=== PATIENT | male | born 1955 | race Caucasian/White ===

== ENCOUNTER → 2018-03-05 | Day surgery (SDC) | payer BC ==
[2018-03-04 17:20] LABS: BASOPHILS % 0.7 % (0.0-1.0); EOSINOPHILS # (AUTO) 0.8 (0.0-0.4); HEMATOCRIT 36.1 % (38.2-49.6); HEMOGLOBIN 12.1 g/dL (14.0-18.0); LYMPHOCYTES # (AUTO) 0.9 (1.0-3.2); LYMPHOCYTES % 16.3 % (18.0-39.1); MEAN CORPUSCULAR HEMOGLOBIN 29.5 pg (28-32); MEAN CORPUSCULAR HGB CONC 33.5 g/dL (31-35); MONOCYTES # (AUTO) 0.7 (0.2-0.8); MONOCYTES % 12.8 % (4.4-11.3); NEUTROPHILS # (AUTO) 3.2 (2.1-6.9); PLATELET COUNT 109 x10e3/uL (140-360); RED CELL DISTRIBUTION WIDTH 12.7 % (11.7-14.4)
[~2018-03-05] MED LIST: ATORVASTATIN CA20 MG PO; BRILINTA90 MG PO; CALTRATE 600+D1 EACH PO; CARVEDILOL12.5 MG PO; CRESTOR20 MG PO; DAILY VITAMIN1 EAC3 PO; DICLOFENAC SODI75 MG PO; FENTANYL CITRATE/PF 100MCG/2 ML INJ ONE; FUROSEMIDE40 MG PO; IRON PO; ISOSORBIDE MONO30 MG PO; LISINOPRIL10 MG PO; METHOCARBAMOL750 MG PO; MIDAZOLAM HCL 2 MG/2 ML VIAL ONE; PROPOFOL IV EMULSION 10 MG/ML 50 ML VIAL ONE; SPIRONOLACTONE25 MG PO; VIT D3 PO; VITAMIN D2 IM; VITAMIN PO
--- OUTSIDE RECORDS SUMMARY | 2018-03-05 06:46 | XMS REPORT | Clinical Summary ---
Author Author PATT Baitianshi [facility] [employer] [facility] Address Unknown Phone Unavailable Care Team Providers Care Pediatric Np Name Role Phone Boris Marroquin PCP Allergies No Known Allergies Medications End Date Status Medication Sig Dispensed Refills Start Date Active CALCIUM CARBONATE/VITAMIN Take 1 tablet 0 D3 (CALTRATE 600 + D by mouth ORAL) daily. Active docusate sodium (COLACE) Take 100 mg 0 100 MG capsule by mouth as needed . Active cholecalciferol, vitamin Take 1,000 0 D3, 2,000 unit Cap Units by mouth daily. Active VIT#96/FERROUS Take 1 tablet 0 FUM/FA ( VITAMIN by mouth W/IRON-FOLATE) 27 mg daily. iron- 800 mcg Tab Active b complex vitamins tablet Take 1 tablet 0 by mouth daily B-12 . Active isosorbide mononitrate TAKE ONE 30 tablet 5 (IMDUR) 60 MG 24 hr TABLET BY 8 tablet MOUTH DAILY 06/10/2018 Active carvedilol (COREG) 12.5 Take 1 tablet 60 tablet 11 MG tablet (12.5 mg 8 total) by mouth 2 (two) times daily with breakfast and dinner. 06/10/2018 Active atorvastatin (LIPITOR) 80 Take 1 tablet 30 tablet 11 MG tablet (80 mg total) 8 by mouth daily. 06/10/2018 Active spironolactone Take 1 tablet 30 tablet 11 (ALDACTONE) 25 MG tablet (25 mg total) 8 by mouth daily. Active ticagrelor (BRILINTA) 90 Take 1 tablet 180 tablet 3 mg Tab tablet (90 mg total) 8 by mouth every 12 (twelve) hours. Active furosemide (LASIX) 20 MG Take 1 tablet 30 tablet 11 tablet (20 mg total) 8 by mouth daily. 11/24/2018 Active lisinopril Take 1 tablet 30 tablet 11 (PRINIVIL,ZESTRIL) 40 MG (40 mg total) 8 tablet by mouth daily. 06/10/2017 Discontinued carvedilol (COREG) 12.5 Take 1 tablet 60 tablet 6 MG tablet (12.5 mg 6 total) by mouth 2 (two) times daily with breakfast and dinner. 04/29/2017 Discontinued isosorbide mononitrate Take 1 tablet 30 tablet 6 (IMDUR) 60 MG 24 hr (60 mg total) 6 tablet by mouth daily. 06/10/2017 Discontinued atorvastatin (LIPITOR) 80 Take 1 tablet 30 tablet 6 MG tablet (80 mg total) 6 by mouth daily. 06/10/2017 Discontinued furosemide (LASIX) 20 MG Take 1 tablet 45 tablet 11 tablet (20 mg total) 6 by mouth daily And as needed for weight gain. 04/16/2017 ferrous sulfate (FERROUS Take 1 tablet 0 SULFATE) 325 (65 FE) MG (325 mg 6 tablet total) by mouth 3 (three) times daily with meals. 06/10/2017 Discontinued ticagrelor (BRILINTA) 90 Take 1 tablet 180 tablet 3 mg Tab tablet (90 mg total) 7 by mouth every 12 (twelve) hours. 06/10/2017 Discontinued lisinopril Take 1 tablet 30 tablet 11 (PRINIVIL,ZESTRIL) 20 MG (20 mg total) 7 tablet by mouth daily. 06/10/2017 Discontinued spironolactone Take 1 tablet 30 tablet 5 (ALDACTONE) 25 MG tablet (25 mg total) 7 by mouth daily. 11/11/2017 Discontinued furosemide (LASIX) 20 MG Take 1 tablet 30 tablet 11 tablet (20 mg total) 8 by mouth daily. 11/24/2017 Discontinued lisinopril Take 1 tablet 30 tablet 11 (PRINIVIL,ZESTRIL) 20 MG (20 mg total) 8 tablet by mouth daily. 11/24/2017 Discontinued furosemide (LASIX) 40 MG Take 1 tablet 30 tablet 5 tablet (40 mg total) 8 by mouth daily. Active Problems Patient Care Coordination Note Interim Test/Studies 2DEcho, 04/10/17 Summary 1. The left ventricle is chamber size (by vol index) is severely enlarged. No evidence of LV hypertrophy. Severe hypokinesis of the entire inferolateral camara. The other LV segments contract normally. Global LV systolic function mildly reduced. Estimated LVEF by qualitative assessment is mildly reduced (45-49%). Grade 1 diastolic dysfunction (impaired relaxation and low-normal LA pressure). LA size is severely enlarged (>48 ml/m2). 2. RV chamber size is moderately enlarged. Global RV systolic function is normal. RA size is moderately dilated. Estimated peak systolic PA pressure is 25-30 mmHg . 3. Mild tricuspid regurgitation. Previous Study In comparison with the prior exam 09/03/2016 there is no significant interval change. 2D Echo 02/05/17 [facility] Summary 1. The left ventricle is chamber size (by vol index) is severely enlarged. No evidence of LV hypertrophy. Severe hypokinesis of the entire inferolateral camara. The other LV segments contract normally. Global LV systolic function mildly reduced. Estimated LVEF by qualitative assessment is mildly reduced (45-49%). Grade 1 diastolic dysfunction (impaired relaxation and low-normal LA pressure). LA size is severely enlarged (>48 ml/m2).LVIDd 6.5 cm 2. RV chamber size is moderately enlarged. Global RV systolic function is normal. RA size is moderately dilated. Estimated peak systolic PA pressure is 25-30 mmHg . 3. Mild tricuspid regurgitation. Previous Study In comparison with the prior exam 09/03/2016 there is no significant interval change. 2D Echo 09/03/16 [facility] SUMMARY: LVEF by quantitative assessment is mildly reduced (45-49%).LVIDd 5.2 cm Inferolateral segments appear hypokinetic. The other segments are minimally hypokinetic Grade 1 diastolic dysfunction (impaired relaxation and low-normal LA pressure). The right ventricular chamber size and systolic function are within normal limits. Estimated peak systolic PA pressure is 20-25 mmHg + RA pressure. In comparison with the prior exam on 08/01/15 the following changes are noted: improved EF. Problem Noted Date AICD (automatic cardioverter/defibrillator) present - [facility] 04/04/2016 Systolic HF (heart failure) 08/04/2015 Type II or unspecified type diabetes mellitus with other specified 12/29/2014 manifestations, not stated as uncontrolled Unstable angina 12/07/2014 CAD (coronary artery disease) 04/09/2012 Overview: CABG 2003, PCI left main D1 in 2000 Ischemic cardiomyopathy 02/10/2012 Overview: LVEF 50%, LVIDd 5.9 cm per echo 05/19/2014 Morbid obesity 02/10/2012 Overview: S/p bariatric surgery 03/23/12 Hypertension 02/10/2012 Prostatism 02/10/2012 Hyperlipidemia 02/10/2012 Gout 02/10/2012 JOSE on CPAP 02/10/2012 Chronic back pain 02/10/2012 Chronic knee pain 02/10/2012 PVD (peripheral vascular disease) 02/10/2012 Overview: Largely venous insufficiency and chronic lymphedema Peripheral neuropathy 02/10/2012 Encounters Care Team Description Date Type Specialty Kaylee Benavides 02/16/2018 Telephone Central Scheduling Gustabo Dorado MD Ischemic cardiomyopathy; Essential hypertension; Hyperlipidemia, unspecified hyperlipidemia type; Chronic systolic heart failure (HCC); Mixed hyperlipidemia; Type 2 diabetes mellitus without complication, unspecified whether long-term insulin use (HCC) 02/12/2018 Office Visit Kaylee Franco 02/11/2018 Documentation Transplant Gustabo Dorado MD Coronary artery disease involving upper [place] coronary artery of upper [place] heart without angina pectoris (Primary Dx) 12/16/2017 Office Visit Kaylee Franco Follow-up 11/20/2017 Telephone Transplant Gustabo Dorado MD Ischemic cardiomyopathy; Essential hypertension; Hyperlipidemia, unspecified hyperlipidemia type; Chronic systolic heart failure (HCC); Mixed hyperlipidemia; Systolic heart failure, unspecified HF chronicity (HCC); Type 2 diabetes mellitus without complication, unspecified whether rn long term care insulin use (HCC) 11/11/2017 Office Visit Kaylee Franco 11/10/2017 Documentation Transplant Ann-Marie Reid RN Systolic heart failure, unspecified HF chronicity (HCC) (Primary Dx); Type 2 diabetes mellitus without complication, unspecified whether rn long term care insulin use (HCC) 11/07/2017 Orders Only Transplant Kaylee Benavides 10/21/2017 Documentation Transplant Gustabo Dorado MD Ischemic cardiomyopathy; Essential hypertension; Hyperlipidemia, unspecified hyperlipidemia type; Chronic systolic heart failure (HCC); Mixed hyperlipidemia 08/05/2017 Office Visit Transplant Caitlyn Song RN Ischemic cardiomyopathy (Primary Dx); Essential hypertension; Hyperlipidemia, unspecified hyperlipidemia type; Chronic systolic heart failure (HCC); Mixed hyperlipidemia 07/17/2017 Orders Only Transplant Kaylee Benavides 07/16/2017 Telephone Transplant Caitlyn Song RN medication question 07/09/2017 Telephone Transplant Caitlyn Song RN 06/10/2017 Orders Only Transplant Caitlyn Song RN 06/06/2017 Orders Only Transplant Tanna Quiles NP 04/29/2017 Refill Transplant Gustabo Dorado MD Essential hypertension (Primary Dx); Hyperlipidemia, unspecified hyperlipidemia type; Chronic systolic heart failure (HCC) 04/10/2017 Office Visit Transplant Kaylee Benavides 04/09/2017 Telephone Transplant after 03/04/2017 Immunizations Name Dates Previously Given Next Due Influenza TIV (IM) 05/19/2014 Influenza Three-TIV PF 5+ 02/15/2016 YR Social History Date Tobacco Use Types Packs/Day Years Used Former Smoker Cigarettes, Cigars Smokeless Tobacco: Never Used Alcohol Use Drinks/Week oz/Week Comments Yes 2 glasses of wine a year Sex Assigned at Date Recorded Not on file Industry Job Start Date Occupation Not on file Not on file Not on file Travel End Travel History Travel Start No recent travel history available. Last Filed Vital Signs Time Taken Vital Sign Reading 02/12/2018 2:00 PM CDT Blood Pressure 124/92 02/12/2018 2:00 PM CDT Pulse 92 02/12/2018 2:00 PM CDT Temperature 36.6 C (97.9 F) 02/12/2018 2:00 PM CDT Respiratory Rate 20 02/12/2018 2:00 PM CDT Oxygen Saturation 97% - Inhaled Oxygen - Concentration 02/12/2018 2:00 PM CDT Weight 132.8 kg (292 lb 11.2 oz) 02/12/2018 2:00 PM CDT Height 190.5 cm (6' 3") 02/12/2018 2:00 PM CDT Body Mass Index 36.58 Plan of Treatment Care Team Description Date Type Specialty Gustabo Dorado MD [id number] [place] [address] [phone] 05/14/2018 Office Visit Transplant Health Maintenance Due Date Last Done Comments INFLUENZA VACCINE 01/19/2018 02/15/2016 Implants Device Identifier Shelf Expiration Date Model / Serial / Lot Implanted Type Area Manufactur er 11/19/2015 [id number] - 65 / [id number] / Durata / Rv - Icd [employer] Implanted: Qty: 1 on 12/13/2014 [employer] 06/18/2017 [id number] - 52 / [id number] / [employer] Sts / Ra - Icd [employer] Implanted: Qty: 1 on 12/13/2014 [employer] 09/18/2016 [id number] - 40Q / [id number] / Clare Kc Dr / Generator [facility] [employer] Implanted: Qty: 1 on 12/13/2014 [employer] Procedures Comments Procedure Name Priority Date/Time Associated Diagnosis CBC W/PLT COUNT & AUTO STAT 02/12/2018 Ischemic cardiomyopathy DIFFERENTIAL 1:51 PM CDT Essential hypertension Hyperlipidemia, unspecified hyperlipidemia type Chronic systolic heart failure (HCC) Mixed hyperlipidemia HEMOGLOBIN A1C AP Routine 02/12/2018 Type 2 diabetes mellitus 1:51 PM CDT without complication, unspecified whether long-term insulin use (HCC) HEPATIC FUNCTION PANEL STAT 02/12/2018 Ischemic cardiomyopathy 1:51 PM CDT Essential hypertension Hyperlipidemia, unspecified hyperlipidemia type Chronic systolic heart failure (HCC) Mixed hyperlipidemia LIPID PANEL STAT 02/12/2018 Ischemic cardiomyopathy 1:51 PM CDT Essential hypertension Hyperlipidemia, unspecified hyperlipidemia type Chronic systolic heart failure (HCC) Mixed hyperlipidemia B-TYPE NATRIURETIC FACTOR STAT 02/12/2018 Ischemic cardiomyopathy (BNP) 1:51 PM CDT Essential hypertension Hyperlipidemia, unspecified hyperlipidemia type Chronic systolic heart failure (HCC) Mixed hyperlipidemia BASIC METABOLIC PANEL (7) STAT 02/12/2018 Ischemic cardiomyopathy 1:51 PM CDT Essential hypertension Hyperlipidemia, unspecified hyperlipidemia type Chronic systolic heart failure (HCC) Mixed hyperlipidemia CBC W/PLT COUNT & AUTO STAT 02/12/2018 Ischemic cardiomyopathy DIFFERENTIAL 1:51 PM CDT Essential hypertension Hyperlipidemia, unspecified hyperlipidemia type Chronic systolic heart failure (HCC) Mixed hyperlipidemia CBC W/PLT COUNT & AUTO STAT 11/11/2017 Ischemic cardiomyopathy DIFFERENTIAL 1:54 PM CDT Essential hypertension Hyperlipidemia, unspecified hyperlipidemia type Chronic systolic heart failure (HCC) Mixed hyperlipidemia HEMOGLOBIN A1C AP Routine 11/11/2017 Type 2 diabetes mellitus 1:54 PM CDT without complication, unspecified whether long-term insulin use (HCC) B-TYPE NATRIURETIC FACTOR STAT 11/11/2017 Ischemic cardiomyopathy (BNP) 1:54 PM CDT Essential hypertension Hyperlipidemia, unspecified hyperlipidemia type Chronic systolic heart failure (HCC) Mixed hyperlipidemia BASIC METABOLIC PANEL (7) STAT 11/11/2017 Ischemic cardiomyopathy 1:54 PM CDT Essential hypertension Hyperlipidemia, unspecified hyperlipidemia type Chronic systolic heart failure (HCC) Mixed hyperlipidemia CBC W/PLT COUNT & AUTO STAT 11/11/2017 Ischemic cardiomyopathy DIFFERENTIAL 1:54 PM CDT Essential hypertension Hyperlipidemia, unspecified hyperlipidemia type Chronic systolic heart failure (HCC) Mixed hyperlipidemia ECG 12-LEAD Routine 11/11/2017 Systolic heart failure, 1:51 PM CDT unspecified HF chronicity (HCC) CBC W/PLT COUNT & AUTO STAT 08/05/2017 Ischemic cardiomyopathy DIFFERENTIAL 1:57 PM CDT Essential hypertension Hyperlipidemia, unspecified hyperlipidemia type Chronic systolic heart failure (HCC) Mixed hyperlipidemia HEPATIC FUNCTION PANEL STAT 08/05/2017 Ischemic cardiomyopathy 1:57 PM CDT Essential hypertension Hyperlipidemia, unspecified hyperlipidemia type Chronic systolic heart failure (HCC) Mixed hyperlipidemia LIPID PANEL STAT 08/05/2017 Ischemic cardiomyopathy 1:57 PM CDT Essential hypertension Hyperlipidemia, unspecified hyperlipidemia type Chronic systolic heart failure (HCC) Mixed hyperlipidemia B-TYPE NATRIURETIC FACTOR STAT 08/05/2017 Ischemic cardiomyopathy (BNP) 1:57 PM CDT Essential hypertension Hyperlipidemia, unspecified hyperlipidemia type Chronic systolic heart failure (HCC) Mixed hyperlipidemia BASIC METABOLIC PANEL (7) STAT 08/05/2017 Ischemic cardiomyopathy 1:57 PM CDT Essential hypertension Hyperlipidemia, unspecified hyperlipidemia type Chronic systolic heart failure (HCC) Mixed hyperlipidemia CBC W/PLT COUNT & AUTO STAT 08/05/2017 Ischemic cardiomyopathy DIFFERENTIAL 1:57 PM CDT Essential hypertension Hyperlipidemia, unspecified hyperlipidemia type Chronic systolic heart failure (HCC) Mixed hyperlipidemia CBC W/PLT COUNT & AUTO STAT 04/10/2017 Hyperlipidemia, DIFFERENTIAL 2:54 PM IT HELP DESK TECHNICIAN unspecified hyperlipidemia type Chronic systolic heart failure (HCC) CBC W/PLT COUNT & AUTO STAT 04/10/2017 Hyperlipidemia, DIFFERENTIAL 2:54 PM IT HELP DESK TECHNICIAN unspecified hyperlipidemia type Chronic systolic heart failure (HCC) BASIC METABOLIC PANEL (7) STAT 04/10/2017 Hyperlipidemia, 2:54 PM IT HELP DESK TECHNICIAN unspecified hyperlipidemia type Chronic systolic heart failure (HCC) B-TYPE NATRIURETIC FACTOR STAT 04/10/2017 Hyperlipidemia, (BNP) 2:54 PM IT HELP DESK TECHNICIAN unspecified hyperlipidemia type Chronic systolic heart failure (HCC) after 03/04/2017 Results * CBC with platelet count + automated diff (02/12/2018 1:51 PM CDT) Only the most recent of 4 results within the time period is included. WBC 4.3 3.5 - 10.5 K/L [facility] RBC 4.36 (L) 4.63 - 6.08 M/L [facility] Hemoglobin 12.7 (L) 13.7 - 17.5 GM/DL [facility] Hematocrit 37.9 (L) 40.1 - 51.0 % [facility] MCV 86.9 79.0 - 92.2 fL [facility] MCH 29.1 25.7 - 32.2 pg [facility] MCHC 33.5 32.3 - 36.5 GM/DL [facility] RDW 12.3 11.6 - 14.4 % [facility] Platelets 165 150 - 450 K/CU MM [facility] MPV 10.1 9.4 - 12.4 fL [facility] nRBC 0 0 - 0 /100 WBC [facility] % Neutros 61 % [facility] % Lymphs 21 % [facility] % Monos 10 % [facility] % Eos 7 % [facility] % Baso 1 % [facility] # Neutros 2.60 1.78 - 5.38 K/L [facility] # Lymphs 0.91 (L) 1.32 - 3.57 K/L [facility] # Monos 0.42 0.30 - 0.82 K/L [facility] # Eos 0.29 0.04 - 0.54 K/L [facility] # Baso 0.05 0.01 - 0.08 K/L [facility] Immature 1 0 - 1 % [facility] Specimen Blood Performing Organization Address City/[facility]/Zipcode Phone Number [address] [address] [facility] * B N P (02/12/2018 1:51 PM CDT) Only the most recent of 4 results within the time period is included. BNP 94 0 - 100 pg/mL [facility] Specimen Blood Performing Organization Address City/State/Zipcode Phone Number [address] [address] [facility] * Hemoglobin A1c (02/12/2018 1:51 PM CDT) Only the most recent of 2 results within the time period is included. Hemoglobin A1C 5.6 4.3 - 6.1 % [facility] Specimen Blood Performing Organization Address [facility] Phone Number [facility] [address] [place], [place] [phone] [facility] * Hepatic function panel (02/12/2018 1:51 PM CDT) Only the most recent of 2 results within the time period is included. Protein, Total 7.2 6.0 - 8.3 gm/dL [facility] Albumin 4.3 3.5 - 5.0 g/dL [facility] Total Bilirubin 0.6 0.2 - 1.2 mg/dL [facility] Bilirubin, Direct 0.2 0.1 - 0.5 mg/dL [facility] Alkaline Phosphatase 128 40 - 150 U/L [facility] AST 19 5 - 34 U/L [facility] ALT 14 6 - 55 U/L [facility] Specimen Blood Performing Organization Address [facility] Phone Number [facility] [address] [place] [address] [facility] * Lipid panel (02/12/2018 1:51 PM CDT) Only the most recent of 2 results within the time period is included. Triglycerides 173 mg/dL [facility] Cholesterol 187 mg/dL [facility] HDL 32 mg/dL [facility] LDL Calculated 120 mg/dL [facility] Specimen Blood Narrative Performed At Triglyceride Reference Range: [facility] Low Risk <150 [facility] [id number] High Risk 200-499 Very High Risk>=500 Cholesterol Reference Range: Low Risk <200 [id number] High Risk>240 HDL Cholesterol Reference Range: Low Risk >=60 High Risk <40 LDL Cholesterol Reference Range: Optimal<100 Near [id number] Very High >=190 Performing Organization Address City/[facility] Phone Number [facility] [address] [place], [place] [phone] [facility] * Basic Metabolic Panel (02/12/2018 1:51 PM CDT) Only the most recent of 4 results within the time period is included. Sodium 141 136 - 145 meq/L [facility] Potassium 3.7 3.5 - 5.1 meq/L [facility] Chloride 107 98 - 107 meq/L [facility] CO2 26 22 - 29 meq/L [facility] BUN 15 7 - 21 mg/dL [facility] Creatinine 1.17 0.57 - 1.25 mg/dL [facility] Glucose 117 (H) 70 - 105 mg/dL [facility] Calcium 9.3 8.4 - 10.2 mg/dL [facility] EGFR 64Comment: ESTIMATED GFR IS mL/min/1.73 sq m [facility] NOT ACCURATE CREATININE [facility] CLEARANCE IN PREDICTING GLOMERULAR FILTRATION RATE. ESTIMATED GFR IS NOT APPLICABLE FOR DIALYSIS PATIENTS. Specimen Blood Performing Organization Address City/State/Zipcode Phone Number [facility] [address] [place] [address] [facility] * ECG 12 lead (11/11/2017 1:51 PM CDT) Narrative Performed At Ventricular Rate 65 BPM [facility] Atrial Rate 65 BPM P-R Interval 218 ms QRS Duration 118 ms Q-T Interval 450 ms QTC Calculation(Bazett) 468 ms P [place] 21 degrees R [place]re[place] 4 degrees T [place]re[place] 44 degrees Sinus rhythm with 1st degree A-V block Borderline ECG When compared with ECG of 11-JUN-2016 13:31, MD interval has increased Confirmed by MD VARUN, KARSTEN ([id number]) on 11/12/2017 11:24:40 AM Procedure Note Interface, External Ris In - 11/12/2017 11:24 AM CDT Ventricular Rate 65 BPM Atrial Rate 65 BPM P-R Interval 218 ms QRS Duration 118 ms Q-T Interval 450 ms QTC Calculation(Bazett) 468 ms P [place] 21 degrees R [place]re[place] 4 degrees T [place] 44 degrees Sinus rhythm with 1st degree A-V block Borderline ECG When compared with ECG of 11-JUN-2016 13:31, MD interval has increased Confirmed by MD VARUN, KARSTEN ([id number]) on 11/12/2017 11:24:40 AM Performing Organization Address City/State/Zipcode Phone Number GE MUSE after 03/04/2017 Insurance Payer Benefit Subscriber ID Type Phone Address Plan / Group BLUE CROSS/BLUE SHIELD BCBS OS xxxxxxxxxxxx PPO [phone] [address] [place] [address] O Advance Directives For more information, please contact: [facility] [address] [place] [address] Date Inactivated Comments Code Status Date Activated 12/16/2014 3:29 PM Full Code 12/13/2014 3:47 PM This code status was determined by: Patient 12/13/2014 3:47 PM Full Code 12/12/2014 6:48 AM This code status was determined by: Patient
--- OUTSIDE RECORDS SUMMARY | 2018-03-05 06:47 | XMS REPORT | Summary of Care ---
Author Author [facility] [place] Organization [facility] [place] Address Unknown Phone Unavailable Encounter AVELINO Tellez(JORJE) [id number] Date(s): 04/16/16 - 04/16/16 [facility] [address] [place] [phone] Discharge Disposition: Home or Self Care Attending Physician: Andrea Lehman MD Vital Signs No data available for this section Problem List Condition Effective Dates Status Health Status Informant AICD (automatic Resolved cardioverter/defibri llator) present(Confirmed) CABG (coronary 11/08/10 Active artery bypass graft)(Provisional) CABG x 5 - Coronary Active artery bypass grafts x 5(Confirmed) CAD (coronary artery 11/08/10 Active disease)(Confirmed) Cardiac function Active test abnormal(Confirmed) DM - Diabetes Active mellitus(Confirmed) Gout(Confirmed) 11/08/10 Active HLD 11/08/10 Active (hyperlipidemia)(Con firmed) HTN Resolved (hypertension)(Confi rmed) Ischemic 11/08/10 Active cardiomyopathy(Confi rmed) NC (myocardial Resolved infarction)(Confirme d) Obesity(Confirmed) Active Preoperative Active state(Confirmed) Sleep Active apnea(Confirmed) Stented coronary Resolved artery(Confirmed) Allergies, Adverse Reactions, Alerts Substance Reaction Severity Status NKDA Active Medications No data available for this section Results No data available for this section Immunizations No data available for this section Procedures Procedure Date Related Diagnosis Body Site ACD - Automatic cardiac defibrillator procedure Appendectomy Bilateral replacement of hip joints CABG x 5 - Coronary artery bypass grafts x 5 Knee replacement1 Laparoscopic sleeve gastrectomy 1bil Social History Social History Type Response Alcohol Never Smoking Status Never smoker; Exposure to Tobacco Smoke None; Cigarette Smoking Last 365 Days No; Reg Smoking Cessation Counseling Yes Assessment and Plan No data available for this section
--- OUTSIDE RECORDS SUMMARY | 2018-03-05 06:47 | XMS REPORT | Summary of Care ---
Author Author [facility] [place] Organization [facility] [place] Address Unknown Phone Unavailable Encounter AVELINO Tellez(JORJE) [id number] Date(s): 08/29/16 - 08/29/16 [facility] [place] [address] [place] [phone] Discharge Disposition: Home or Self Care Attending [...] (hypertension)(Confi rmed) Ischemic 11/08/10 Active cardiomyopathy(Confi rmed) DC (myocardial Resolved infarction)(Confirme d) Obesity(Confirmed) Active Preoperative [...] - Coronary artery bypass grafts x 5 Fusion of thoracic spine Knee replacement1 Laparoscopic sleeve gastrectomy 1bil Social History Social History Type Response Alcohol Never Smoking Status Never smoker; Exposure to Tobacco Smoke None; Cigarette Smoking Last 365 Days No; Reg Smoking Cessation Counseling Yes Assessment and Plan No data available for this section
--- OUTSIDE RECORDS SUMMARY | 2018-03-05 06:47 | XMS REPORT | Summary of Care ---
Author Author [facility] Organization [facility] Address Unknown Phone Unavailable Encounter AVELINO Tellez(JORJE) [phone] Date(s): 02/15/16 - 02/15/16 [facility] [address] [employer] provided by [employer] [place] [address]- Discharge Diagnosis: Encounter for removal of sutures Discharge Disposition: Home or Self Care Attending Physician: Jerome Barrera MD Vital Signs Most recent to 1 oldest [Reference Range]: Height 190.5 cm (02/15/16 10:10 AM) Temperature Oral 97.4 DegF [96.4-99.1 DegF] (02/15/16 10:10 AM) Blood Pressure 119/77 mmHg [90-140/60-90 mmHg] (02/15/16 10:10 AM) Respiratory Rate 18 BRMIN [14-20 BRMIN] (02/15/16 10:10 AM) Peripheral Pulse 80 bpm Rate [60-100 bpm] (02/15/16 10:10 AM) Weight 122.727 kg (02/15/16 10:10 AM) Body Mass Index 33.82 m2 (02/15/16 10:10 AM) Problem List Condition Effective Dates Status Health [...] (hypertension)(Confi rmed) Ischemic 11/08/10 Active cardiomyopathy(Confi rmed) [place] (myocardial Resolved infarction)(Confirme d) Preoperative Active state(Confirmed) Sleep Active apnea(Confirmed) Stented [...]
--- OUTSIDE RECORDS SUMMARY | 2018-03-05 06:47 | XMS REPORT | Summary of Care ---
Author Author [facility] Organization [facility] Address Unknown Phone Unavailable Encounter AVELINO Tellez(JORJE) [id number] Date(s): 01/10/16 - 01/25/16 [facility] [address] [employer] provided by [employer] [place] [address]- Discharge Disposition: Home or Self Care Attending Physician: Chace Jackson MD Admitting Physician: Julián Marvin MD Vital Signs 1 2 3 Most recent to oldest [Reference Range]: 190.5 cm (01/10/16 8:17 PM) 190.5 cm (01/10/16 7:54 AM) Height 97.7 DegF (01/25/16 4:00 PM) 97.8 DegF (01/25/16 12:39 PM) 97.6 DegF (01/25/16 8:27 AM) Temperature Oral [96.4-99.1 DegF] 120/82 mmHg (01/25/16 4:00 PM) 128/86 mmHg (01/25/16 12:39 PM) 151/94 mmHg *HI* (01/25/16 8:27 AM) Blood Pressure [90-140/60-90 mmHg] 18 BRMIN (01/25/16 4:00 PM) 18 BRMIN (01/25/16 12:39 PM) 18 BRMIN (01/25/16 8:27 AM) Respiratory Rate [14-20 BRMIN] 80 bpm (01/25/16 4:00 PM) 65 bpm (01/25/16 12:39 PM) 65 bpm (01/25/16 8:27 AM) Peripheral Pulse Rate [60-100 bpm] 121.818 kg (01/10/16 8:17 PM) 117.273 kg (01/10/16 7:54 AM) Weight 33.57 m2 (01/10/16 8:17 PM) 32.32 m2 (01/10/16 7:54 AM) Body Mass Index Problem List Condition Effective Dates Status Health [...] (hypertension)(Confi rmed) Ischemic 11/08/10 Active cardiomyopathy(Confi rmed) HI (myocardial Resolved infarction)(Confirme d) Preoperative Active state(Confirmed) Sleep Active apnea(Confirmed) Stented coronary Resolved artery(Confirmed) Allergies, Adverse Reactions, Alerts Substance Reaction Severity Status NKDA Active Medications Ancef 1 gm, Route: IVPB, Drug form: INJ, ONCE, Dosing Weight 121.818, kg, Start date: 01/18/16 16:15:00 CDT, Stop date: 01/18/16 16:15:00 CDT Start Date: 01/18/16 Stop Date: 01/18/16 Status: Completed Ancef 2 gm, Route: IVPB, ONCE, Dosing Weight 121.818, kg, Start date: 01/18/16 13:17:0 0 CDT, Duration: 1 doses or times, Stop date: 01/18/16 13:17:00 CDT, Surgical Pr ophylaxis Only; For patients < 120 kg Start Date: 01/18/16 Stop Date: 01/18/16 Status: Completed Ancef + sodium chloride 0.9% INJ 100 mL 2 gm, Route: IVPB, Drug form: INJ, [id number], Dosing Weight 121.818, kg, Start date : 01/18/16 21:00:00 CDT, Stop date: 01/19/16 16:00:00 CDT, Surgical Prophylaxis Only; For patients < 120 kg Notes: (Same As: Ancef, Kefzol)Cefazolin FOR IV SET ONLY MEDICATION WAS TE Product Size: 1000 mgProduct Wasted: _0__ mg Start Date: 01/18/16 Stop Date: 01/19/16 Status: Completed ANES flumazenil 0.2 mg, 2 mL, Route: IVP, Drug form: INJ, PRN, Dosing Weight 121.818, kg, PRN Be nzodiazepine Reversal, Initial dose, Start date: 01/18/16 17:39:00 CDT, Duration : 30 day, Stop date: 02/17/16 17:38:00 CDT Notes: (Same as: Romazicon) Start Date: 01/18/16 Stop Date: 01/18/16 Status: Discontinued ANES HYDROmorphone 0.5 mg, 0.25 mL, Route: IVP, Drug form: INJ, Q5Min, Dosing Weight 121.818, kg, P RN Pain Score 7-10, Start date: 01/18/16 17:39:00 CDT, Duration: 4 doses or time s, Stop date: Limited # of times Notes: (Same as: Dilaudid) Start Date: 01/18/16 Stop Date: 01/18/16 Status: Discontinued ANES naloxone 0.4 mg, 1 mL, Route: IVP, Drug form: INJ, Q2MIN, Dosing Weight 121.818, kg, PRN Narcotic Reversal, Start date: 01/18/16 17:39:00 CDT, Duration: 8 doses or times , Stop date: Limited # of times Notes: Same as Narcan Start Date: 01/18/16 Stop Date: 01/18/16 Status: Discontinued ANES ondansetron 4 mg, 2 mL, Route: IVP, Drug form: INJ, ONCE, Dosing Weight 121.818, kg, PRN Ti sea & Vomiting, Start date: 01/18/16 17:39:00 CDT Notes: (Same as: Isra) MEDICATION WASTE Product Size: 4 mgProduct Was jackie: ___ mg Start Date: 01/18/16 Stop Date: 01/18/16 Status: Discontinued ANES oxyCODONE 5 mg, 1 tab, Route: PO, Drug form: TAB, Q4H, Dosing Weight 121.818, kg, PRN Pain Score 4-6, Start date: 01/18/16 17:39:00 CDT, Duration: 30 day, Stop date: 01/20 01/04 17:38:00 CDT Notes: (Same as: Roxicodone) Start Date: 01/18/16 Stop Date: 01/18/16 Status: Discontinued atorvastatin 80 mg, 1 tab, Route: PO, Drug form: TAB, Bedtime, Dosing Weight 121.818, kg, Sta rt date: 01/11/16 21:00:00 CDT, Duration: 30 day, Stop date: 02/09/16 21:00:00 C DT Notes: Same as Lipitor Start Date: 01/11/16 Stop Date: 01/25/16 Status: Discontinued Brilinta (ticagrelor) 90 mg, 1 tab, Route: PO, Drug form: TAB, Q12H, Dosing Weight 121.818, kg, Start date: 01/24/16 21:00:00 CDT, Duration: 30 day, Stop date: 02/23/16 9:00:00 CDT Notes: (Same as: Brilinta) Start Date: 01/24/16 Stop Date: 01/25/16 Status: Discontinued Brilinta (ticagrelor) 90 mg oral tablet 90 mg=1 tab, PO, BID, 0 Refill(s) Start Date: 01/19/16 Status: Ordered bupivacaine liposome 20 mL, Route: InFILtration(local), Drug Form: INJ, ONCE, NOW, Start date: 13:47:00 CDT, Stop date: 01/18/16 13:47:00 CDT Notes: (Same as: Exparel) NOT FOR IV use Postoperative analgesia: Infi ltration (local): Dose is based on surgical site and volume required to cover th e area (in general, the maximum total dose is 266 mg).Bunionectomy: 7 mL into th e tissues surrounding the osteotomy and 1 mL into the subcutaneous tissue of the surgical site (total dose=8 mL [106 mg])Hemorrhoidectomy: 30 mL (20 mL vial dil uted with 10 mL NS) divided and administered as 6 injections of 5 mL each (total dose=30 mL [266 mg]) Start Date: 01/18/16 Stop Date: 01/18/16 Status: Completed Caltrate 600 + D 1 tab, PO, Daily, 0 Refill(s) Start Date: 01/11/16 Status: Ordered carvedilol 12.5 mg, 1 tab, Route: PO, Drug form: TAB, Q12H, Dosing Weight 121.818, kg, Star t date: 01/11/16 21:00:00 CDT, Duration: 30 day, Stop date: 02/10/16 9:00:00 CDT Notes: Give with food. (Same As: Coreg) Start Date: 01/11/16 Stop Date: 01/25/16 Status: Discontinued carvedilol 12.5 mg oral tablet 12.5 mg=1 tab, PO, Q12H, # 60 tab, 0 Refill(s) Start Date: 01/25/16 Stop Date: 02/24/16 Status: Ordered cholecalciferol =1 tab, PO, Daily, 0 Refill(s) Start Date: 01/11/16 Status: Ordered Dextrose 50% Syringe 25 gm, 50 mL, Route: IVP, Drug Form: INJ, Dosing Weight 117.273, kg, PRN, PRN Ab normal Lab Result, Start date: 01/10/16 12:42:00 CDT, Duration: 30 day, Stop sean e: 02/09/16 12:41:00 CDT, For FSBG < 40 mg/dL Start Date: 01/10/16 Stop Date: 01/19/16 Status: Discontinued Dextrose 50% Syringe 12.5 gm, 25 mL, Route: IVP, Drug Form: INJ, Dosing Weight 117.273, kg, PRN, PRN Abnormal Lab Result, Start date: 01/10/16 12:42:00 CDT, Duration: 30 day, Stop d ate: 02/09/16 12:41:00 CDT, For FSBG 40 mg/dL - 60 mg/dL Start Date: 01/10/16 Stop Date: 01/19/16 Status: Discontinued Dilaudid 0.5 mg, 0.25 mL, Route: IVP, Drug form: INJ, ONCE, Dosing Weight 117.273, kg, Pr iority: STAT, Start date: 01/10/16 14:20:00 CDT, Stop date: 01/10/16 14:20:00 CD T Notes: (Same as: Dilaudid) Start Date: 01/10/16 Stop Date: 01/10/16 Status: Completed docusate 100 mg, PO, PRN, 0 Refill(s) Start Date: 01/11/16 Status: Ordered Dulcolax Laxative 5 mg, 1 tab, Route: PO, Drug form: ECTAB, ONCE, Dosing Weight 121.818, kg, Start date: 01/13/16 17:47:00 CDT, Stop date: 01/13/16 17:47:00 CDT Notes: (Same As: Dulcolax, Correctol) (Do Not Crush) "Do Not Crush" Start Date: 01/13/16 Stop Date: 01/13/16 Status: Completed fentaNYL 50 microgram, Route: IVP, ONCE, Dosing Weight 117.273, kg, Priority: STAT, Start date: 01/10/16 9:47:00 CDT, Stop date: 01/10/16 9:47:00 CDT Start Date: 01/10/16 Stop Date: 01/10/16 Status: Completed fentaNYL 50 microgram, Route: IVP, ONCE, Dosing Weight 117.273, kg, Priority: STAT, Start date: 01/10/16 8:18:00 CDT, Stop date: 01/10/16 8:18:00 CDT Start Date: 01/10/16 Stop Date: 01/10/16 Status: Completed fentaNYL 50 microgram, Route: IVP, ONCE, Dosing Weight 117.273, kg, Priority: STAT, Start date: 01/10/16 9:48:00 CDT, Stop date: 01/10/16 9:48:00 CDT Start Date: 01/10/16 Stop Date: 01/10/16 Status: Completed fentaNYL 50 microgram, 1 mL, Route: IVP, Drug form: INJ, ONCE, Dosing Weight 117.273, kg, Priority: STAT, Start date: 01/10/16 9:01:00 CDT, Stop date: 01/10/16 9:01:00 C DT Notes: (Same as: Sublimaze) Preservative free. Start Date: 01/10/16 Stop Date: 01/10/16 Status: Completed fentaNYL 50 microgram, Route: IVP, ONCE, Dosing Weight 117.273, kg, Priority: STAT, Start date: 01/10/16 9:47:00 CDT, Stop date: 01/10/16 9:47:00 CDT Start Date: 01/10/16 Stop Date: 01/10/16 Status: Completed ferrous sulfate =1 tab, PO, Daily, 0 Refill(s) Start Date: 01/11/16 Status: Ordered fosphenytoin + sodium chloride 0.9% INJ 50 mL 1,750 mg, 35 mL, Route: IV, ONCE, Dosing Weight 117.273, kg, Start date: 6 18:43:00 CDT, Stop date: 01/10/16 18:43:00 CDT, loading dose; Pediatric Dosing Notes: (Same as: Cerebyx) Stated mg=mgPE. Refrigerate ANTICONVULSANT Do no t confuse with celebrex. MEDICATION WASTE Product Size: 500 mgProduct W asted: __250_ mg Start Date: 01/10/16 Stop Date: 01/10/16 Status: Completed furosemide 20 mg oral tablet 20 mg=1 tab, PO, Daily, # 30 tab, 0 Refill(s) Start Date: 01/11/16 Status: Ordered gabapentin 300 mg oral capsule 300 mg=1 cap, PO, Q8H, # 90 cap, 0 Refill(s) Start Date: 01/25/16 Stop Date: 02/24/16 Status: Ordered gabapentin 300 mg oral capsule 300 mg, 1 cap, Route: PO, Drug form: CAP, Q8H, Dosing Weight 117.273, kg, (CrCl > 60 ml/min), Start date: 01/10/16 16:00:00 CDT, Duration: 30 day, Stop date: 02/09/16 8:00:00 CDT Notes: (Same as: Neurontin) Start Date: 01/10/16 Stop Date: 01/25/16 Status: Discontinued Insulin regular 12 unit, 0.12 mL, Route: SUB-Q, Drug form: SOLN, PRN, Dosing Weight 117.273, kg, PRN Abnormal Lab Result, Start date: 01/10/16 12:42:00 CDT, Duration: 30 day, S top date: 02/09/16 12:41:00 CDT, For FSBG >=200 mg/dL Notes: (Same as: Humulin R) Roll in palms of hands gently; Do not shake vigorou sly. "single patient use only"(Restricted to patients requiring a dose > 60 units)WASTE: F/P - Black; E - Municipal Trash Bin Stable for 28 days at room temperatureExpires in days from Date Start Date: 01/10/16 Stop Date: 01/19/16 Status: Discontinued Insulin regular 8 unit, 0.08 mL, Route: SUB-Q, Drug form: SOLN, PRN, Dosing Weight 117.273, kg, PRN Abnormal Lab Result, Start date: 01/10/16 12:42:00 CDT, Duration: 30 day, St op date: 02/09/16 12:41:00 CDT, For FSBG 175 mg/dL - 199 mg/dL Notes: (Same as: Humulin R) Roll in palms of hands gently; Do not shake vigorou sly. "single patient use only"(Restricted to patients requiring a dose > 60 units)WASTE: F/P - Black; E - Municipal Trash Bin Stable for 28 days at room temperatureExpires in days from Date Start Date: 01/10/16 Stop Date: 01/19/16 Status: Discontinued Insulin regular 5 unit, 0.05 mL, Route: SUB-Q, Drug form: SOLN, PRN, Dosing Weight 117.273, kg, PRN Abnormal Lab Result, Start date: 01/10/16 12:42:00 CDT, Duration: 30 day, St op date: 02/09/16 12:41:00 CDT, For FSBG 150 mg/dL - 174 mg/dL Notes: (Same as: Humulin R) Roll in palms of hands gently; Do not shake vigorou sly. "single patient use only"(Restricted to patients requiring a dose > 60 units)WASTE: F/P - Black; E - Municipal Trash Bin Stable for 28 days at room temperatureExpires in days from Date Start Date: 01/10/16 Stop Date: 01/19/16 Status: Discontinued Isolyte S (PH 7.4) 1000 mL 1,000 mL 1,000 mL, Rate: 50 ml/hr, Infuse over: 20 hr, Route: IV, Dosing Weight 117.273 k g, Total Volume: 1,000, Start date: 01/10/16 13:13:00 CDT, Duration: 30 day, Sto p date: 02/09/16 13:12:00 CDT Notes: (Same as: Isolyte S PH 7.4) Start Date: 01/10/16 Stop Date: 01/11/16 Status: Discontinued isosorbide mononitrate 60 mg oral tablet, extended release 60 mg=1 tab, PO, QAM, # 30 tab, 0 Refill(s) Start Date: 01/11/16 Status: Ordered isosorbide mononitrate extended release 60 mg, 1 tab, Route: PO, Drug form: ERTAB, QAM, Dosing Weight 121.818, kg, Start date: 01/12/16 9:00:00 CDT, Duration: 30 day, Stop date: 02/10/16 9:00:00 CDT Notes: (Same as:Imswapna)"Do Not Crush" Take on empty stomach/ full glass of water . Do not crush Start Date: 01/12/16 Stop Date: 01/25/16 Status: Discontinued Keppra + sodium chloride 0.9% INJ 100 mL 1,000 mg, Route: IVPB, ONCE, Dosing Weight 117.273, kg, Loading Dose, Start date : 01/10/16 11:16:00 CDT, Duration: 1 doses or times, Stop date: 01/10/16 11:16:0 0 CDT Notes: Same as KeppraMix with 100 mL NS, LR or D5W MEDICATION WASTE Prod uct Size: 500 mgProduct Wasted: ___ mg Start Date: 01/10/16 Stop Date: 01/10/16 Status: Completed Lasix 20 mg oral tablet 20 mg, 1 tab, Route: PO, Drug form: TAB, Daily, Dosing Weight 121.818, kg, Start date: 01/12/16 9:00:00 CDT, Duration: 30 day, Stop date: 02/10/16 9:00:00 CDT Notes: (Same as: Lasix) May cause GI upset. Give with food or milk. Start Date: 01/12/16 Stop Date: 01/25/16 Status: Discontinued lisinopril 5 mg, 1 tab, Route: PO, Drug form: TAB, Daily, Dosing Weight 121.818, kg, Start date: 01/12/16 9:00:00 CDT, Stop date: 02/10/16 9:00:00 CDT Notes: (Same as: Prinivil, Zestril) Start Date: 01/12/16 Stop Date: 01/25/16 Status: Discontinued lisinopril 10 mg oral tablet 10 mg=1 tab, PO, BID, # 30 tab, 0 Refill(s) Start Date: 01/11/16 Stop Date: 01/25/16 Status: Discontinued lisinopril 5 mg oral tablet 5 mg=1 tab, PO, Daily, # 30 tab, 0 Refill(s) Start Date: 01/25/16 Stop Date: 02/24/16 Status: Ordered Lovenox 30 mg, Route: SUB-Q, Drug form: INJ, [id number], Dosing Weight 121.818, kg, Start date: 01/24/16 16:00:00 CDT, Duration: 30 day, Stop date: 02/23/16 4:00:00 CDT Start Date: 01/24/16 Stop Date: 01/24/16 Status: Discontinued Lovenox 30 mg, 0.3 mL, Route: SUB-Q, Drug form: INJ, [id number], Dosing Weight 121.818, kg , Start date: 01/19/16 21:00:00 CDT, Duration: 30 day, Stop date: 02/18/16 9:00: 00 CDT Notes: (Same as: Lovenox) Start Date: 01/19/16 Stop Date: 01/24/16 Status: Discontinued Lovenox 30 mg, 0.3 mL, Route: SUB-Q, Drug form: INJ, [id number], Start date: 01/17/16 5:00 :00 CDT, Duration: 30 day, Stop date: 02/15/16 17:00:00 CDT Notes: (Same as: Lovenox) Start Date: 01/17/16 Stop Date: 01/19/16 Status: Discontinued Lovenox 30 mg, 0.3 mL, Route: SUB-Q, Drug form: INJ, [id number], Dosing Weight 121.818, kg , Start date: 01/11/16 16:00:00 CDT, Stop date: 02/10/16 4:00:00 CDT Notes: (Same as: Lovenox) Start Date: 01/11/16 Stop Date: 01/16/16 Status: Discontinued MiraLax 17 gm, 1 pkt, Route: PO, Drug form: PWDR, Daily, Dosing Weight 121.818, kg, Star t date: 01/12/16 10:00:00 CDT, Duration: 30 day, Stop date: 02/11/16 9:00:00 CDT Notes: Dissolve in 8 oz of water or juice.(Same as: Miralax) Start Date: 01/12/16 Stop Date: 01/25/16 Status: Discontinued oxyCODONE 5 mg oral tablet 5 mg, 1 tab, Route: PO, Drug form: TAB, Q4H, Dosing Weight 117.273, kg, PRN Pain Score 4-6, Start date: 01/10/16 12:43:00 CDT, Duration: 30 day, Stop date: 01/20 05/06 12:42:00 CDT Notes: (Same as: Roxicodone) Start Date: 01/10/16 Stop Date: 01/25/16 Status: Discontinued oxyCODONE 5 mg oral tablet 10 mg, 2 tab, Route: PO, Drug form: TAB, Q4H, Dosing Weight 121.818, kg, PRN Heidi n Score 7-10, Start date: 01/19/16 14:38:00 CDT, Duration: 30 day, Stop date: 14:37:00 CDT Notes: (Same as: Roxicodone) Start Date: 01/19/16 Stop Date: 01/25/16 Status: Discontinued oxyCODONE 5 mg oral tablet 10 mg, 2 tab, Route: PO, Drug form: TAB, ONCE, Dosing Weight 121.818, kg, PRN Pa in Score 7-10, Start date: 01/19/16 11:26:00 CDT Notes: (Same as: Roxicodone) Start Date: 01/19/16 Stop Date: 01/19/16 Status: Completed oxyCODONE 5 mg oral tablet 5 mg=1 tab, PO, Q6H, PRN Pain Score 4-6, X 7 day, # 28 tab, 0 Refill(s), given t o patient Start Date: 01/25/16 Stop Date: 02/01/16 Status: Ordered phenytoin 200 mg, 2 cap, Route: PO, Drug form: ERCAP, Q8H-05, Dosing Weight 121.818, kg, S tart date: 01/14/16 13:00:00 CDT, Stop date: 01/17/16 23:59:00 CDT Notes: (Same as: Dilantin) Do not open, crush, or chew. Start Date: 01/14/16 Stop Date: 01/17/16 Status: Completed phenytoin 200 mg, 4 mL, Route: IVP, Drug form: INJ, Q8H, Dosing Weight 117.273, kg, Start date: 01/11/16 6:00:00 CDT, Duration: 30 day, Stop date: 02/10/16 4:30:00 CDT Notes: (Same as: Dilantin) Do not infuse greater than 50 mg/min. MEDICATION WASTE Product Size: 100 mgProduct Wasted: ___ mg Start Date: 01/11/16 Stop Date: 01/14/16 Status: Discontinued Robaxin 1,000 mg, 2 tab, Route: PO, Drug form: TAB, Q8H, Dosing Weight 121.818, kg, Prio rity: NOW, Start date: 01/19/16 16:35:00 CDT, Duration: 30 day, Stop date: 02/17 16:00:00 CDT Notes: (Same as:Robaxin) Start Date: 01/19/16 Stop Date: 01/25/16 Status: Discontinued Robaxin 1,000 mg, Route: IV, Q8H, Dosing Weight 121.818, kg, Start date: 01/19/16 16:00: 00 CDT, Duration: 30 day, Stop date: 02/18/16 8:00:00 CDT Start Date: 01/19/16 Stop Date: 01/19/16 Status: Discontinued Saline Flush 0.9% 10 mL, Route: IVP, Drug Form: INJ, Dosing Weight 117.273, kg, PRN, PRN Line Flus h, Start date: 01/10/16 8:19:00 CDT, Duration: 30 day, Stop date: 02/09/16 8:18: 00 CDT Notes: (Same as: BD Posiflush) Start Date: 01/10/16 Stop Date: 01/25/16 Status: Discontinued senna 8.6 mg, 1 tab, Route: PO, Drug Form: TAB, Dosing Weight 121.818, kg, Daily, Star t date: 01/13/16 9:00:00 CDT, Duration: 30 day, Stop date: 02/11/16 9:00:00 CDT Notes: (Same as: Senokot) Start Date: 01/13/16 Stop Date: 01/25/16 Status: Discontinued simethicone 80 mg, 1 tab, Route: PO, Drug form: CHEWTAB, Q6H, Dosing Weight 121.818, kg, PRN Gas, Start date: 01/19/16 16:53:00 CDT, Duration: 30 day, Stop date: 02/18/16 1 6:52:00 CDT Notes: (Same as: Mylicon) Start Date: 01/19/16 Stop Date: 01/25/16 Status: Discontinued sodium chloride 0.9% 1000 ml INJ 1,000 mL 1,000 mL, Rate: 75 ml/hr, Infuse over: 13.3 hr, Route: IV, Dosing Weight 121.818 kg, Total Volume: 1,000, Start date: 01/18/16 0:01:00 CDT, Duration: 30 day, St op date: 02/17/16 0:00:00 CDT Start Date: 01/18/16 Stop Date: 01/25/16 Status: Discontinued sodium chloride 0.9% INJ 250 mL 250 mL, Rate: scalloper for use with blood product administration, Dosing Weight 1 17.273, kg, Route: IV, Total Volume: 250, Start Date: 01/10/16 8:44:00 CDT, Dura tion: 30 day, Stop date: 02/09/16 8:43:00 CDT, Replace Every: 24 hr Start Date: 01/10/16 Stop Date: 01/12/16 Status: Discontinued spironolactone 12.5 mg, 0.5 tab, Route: PO, Drug form: TAB, Daily, Dosing Weight 121.818, kg, S tart date: 01/11/16 16:00:00 CDT, Duration: 30 day, Stop date: 02/10/16 9:00:00 CDT Notes: (Same as: Aldactone)12.5 mg=1/2 x 25 mg tab Start Date: 01/11/16 Stop Date: 01/25/16 Status: Discontinued spironolactone 25 mg oral tablet 12.5 mg=0.5 tab, PO, Daily, # 15 tab, 0 Refill(s) Start Date: 01/25/16 Stop Date: 02/24/16 Status: Ordered spironolactone 25 mg oral tablet 25 mg=1 tab, PO, Daily, # 30 tab, 3 Refill(s) Start Date: 01/11/16 Stop Date: 01/25/16 Status: Discontinued tramadol 50 mg, 1 tab, Route: PO, Drug form: TAB, Q6H, Dosing Weight 121.818, kg, PRN Heidi n Score 1-3, Start date: 01/19/16 7:21:00 CDT, Duration: 30 day, Stop date: 01/21 7:20:00 CDT Notes: Not to exceed 400mg/day. (Same As: Ultram) Start Date: 01/19/16 Stop Date: 01/25/16 Status: Discontinued tramadol 100 mg, 2 tab, Route: PO, Drug form: TAB, Q6H, Dosing Weight 117.273, kg, Start date: 01/10/16 18:00:00 CDT, Duration: 30 day, Stop date: 02/09/16 12:00:00 CDT Notes: Not to exceed 400mg/day. (Same As: Ultram) Start Date: 01/10/16 Stop Date: 01/12/16 Status: Discontinued tramadol 50 mg oral tablet 50 mg=1 tab, PO, Q6H, PRN Pain Score 1-3, X 7 day, # 28 tab, 0 Refill(s) Start Date: 01/25/16 Stop Date: 02/01/16 Status: Ordered Tylenol 1,000 mg, 2 tab, Route: PO, Drug form: TAB, Q6H, Dosing Weight 117.273, kg, Star t date: 01/10/16 18:00:00 CDT, Duration: 30 day, Stop date: 02/09/16 12:00:00 CD T Notes: Max acetaminophen 4000 mg/day (4 gm/day). (Same as: Tylenol Extra Streng th) Start Date: 01/10/16 Stop Date: 01/25/16 Status: Discontinued Visipaque 320mg/ml 149 mL, Route: IVP, Drug Form: SOLN, Dosing Weight 117.273, kg, ONCALL, STAT, St art date: 01/10/16 8:41:00 CDT, Duration: 1 doses or times, Dose=2.2ml/kg, Max aann=038cu -- "To be infused by Radiology Staff ONLY" Notes: (Same as: Visipaque).WASTE: F/P - Black; E - Municipal Trash Bin Start Date: 01/10/16 Stop Date: 01/25/16 Status: Discontinued Results BLOOD BANK RESULTS 1 2 3 Most recent to oldest [Reference Range]: A NEG *Unknown* (01/18/16 12:43 AM) A NEG *Unknown* (01/10/16 8:07 AM) ABO/Rh Negative (01/18/16 12:43 AM) Negative (01/10/16 8:07 AM) Antibody Scrn Product available (01/10/16 2:59 PM) FFP product Product available (01/10/16 8:45 AM) Product available (01/10/16 8:44 AM) Platelet product ELECTROLYTES 1 2 3 Most recent to oldest [Reference Range]: 137 mEq/L (01/18/16 12:43 AM) 141 mEq/L (01/15/16 5:19 AM) 138 mEq/L (01/13/16 4:31 AM) Sodium Lvl [135-145 mEq/L] 4.2 mEq/L (01/18/16 12:43 AM) 4.3 mEq/L (01/15/16 5:19 AM) 4.2 mEq/L (01/13/16 4:31 AM) Potassium Lvl [3.5-5.1 mEq/L] 102 mEq/L (01/18/16 12:43 AM) 104 mEq/L (01/15/16 5:19 AM) 103 mEq/L (01/13/16:31 AM) Chloride Lvl [95-109 mEq/L] 28 mEq/L (01/18/16 12:43 AM) 27 mEq/L (01/15/16 5:19 AM) 31 mEq/L (01/13/16:31 AM) CO2 [24-32 mEq/L] 11.2 mEq/L (01/18/16 12:43 AM) 14.3 mEq/L (01/15/16 5:19 AM) 8.2 mEq/L *LOW* (01/13/16:31 AM) AGAP [10.0-20.0 mEq/L] CHEM PANEL 1 2 3 Most recent to oldest [Reference Range]: 0.93 mg/dL (01/18/16 12:43 AM) 0.87 mg/dL (01/15/16:19 AM) 0.87 mg/dL (01/13/16:31 AM) Creatinine Lvl [0.50-1.40 mg/dL] 90 mL/min/1.73m2 1 *NA* (01/18/16 12:43 AM) 95 mL/min/1.73m2 2 *NA* (01/15/16:19 AM) 95 mL/min/1.73m2 3 *NA* (01/13/16:31 AM) eGFR 18 mg/dL (01/18/16 12:43 AM) 14 mg/dL (01/15/16 5:19 AM) 13 mg/dL (01/13/16:31 AM) BUN [7-22 mg/dL] 129 mg/dL *HI* (01/18/16 12:43 AM) 93 mg/dL (01/15/16 5:19 AM) 103 mg/dL *HI* (01/13/16:31 AM) Glucose Lvl [70-99 mg/dL] 8.3 mg/dL *LOW* (01/18/16 12:43 AM) 8.2 mg/dL *LOW* (01/15/16 5:19 AM) 7.9 mg/dL *LOW* (01/13/16 4:31 AM) Calcium Lvl [8.5-10.5 mg/dL] 2.8 mg/dL (01/13/16 4:31 AM) 2.6 mg/dL (01/12/16 12:18 AM) 4.8 mg/dL *HI* (01/11/16 12:30 AM) Phosphorus [2.5-4.5 mg/dL] 2.6 mg/dL *HI* (01/13/16 4:31 AM) 2.1 mg/dL (01/12/16 12:18 AM) 2.1 mg/dL (01/11/16 12:30 AM) Magnesium Lvl [1.8-2.4 mg/dL] 1.2 mMol/L (01/11/16 12:30 AM) 0.9 mMol/L (01/10/16 12:40 PM) 3.6 mMol/L *HI* (01/10/16 10:46 AM) Lactic Acid Lvl [0.5-2.2 mMol/L] 1Result Comment: The eGFR is calculated using the CKD-EPI formula. In most young, healthy individuals the eGFR will be >90 mL/min/1.73m2. The eGFR declines with age. An eGFR of 60-89 may be normal in some populations, particularly the elderly, for whom the CKD-EPI formula has not been extensively validated. Use of the eGFR is not recommended in the following populations: Individuals with unstable creatinine concentrations, including patients and those with serious co-morbid conditions. Patients with extremes in muscle mass or diet. The data above are obtained from the [employer] ( [employer]) which additionally recommends that when the eGFR is used in patients with extremes of body mass index for purposes of drug dosing, the eGFR should be mul tiplied by the estimated BMI. 2Result Comment: The eGFR is calculated using the CKD-EPI formula. In most young, healthy individuals the eGFR will be >90 mL/min/1.73m2. The eGFR declines with age. An eGFR of 60-89 may be normal in some populations, particularly the elderly, for whom the CKD-EPI formula has not been extensively validated. Use of the eGFR is not recommended in the following populations: Individuals with unstable creatinine concentrations, including patients and those with serious co-morbid conditions. Patients with extremes in muscle mass or diet. The data above are obtained from the [employer] ( [employer]) which additionally recommends that when the eGFR is used in patients with extremes of body mass index for purposes of drug dosing, the eGFR should be mul tiplied by the estimated BMI. 3Result Comment: The eGFR is calculated using the CKD-EPI formula. In most young, healthy individuals the eGFR will be >90 mL/min/1.73m2. The eGFR declines with age. An eGFR of 60-89 may be normal in some populations, particularly the elderly, for whom the CKD-EPI formula has not been extensively validated. Use of the eGFR is not recommended in the following populations: Individuals with unstable creatinine concentrations, including patients and those with serious co-morbid conditions. Patients with extremes in muscle mass or diet. The data above are obtained from the National Kidney Disease Education Program ( NKDEP) which additionally recommends that when the eGFR is used in patients with extremes of body mass index for purposes of drug dosing, the eGFR should be mul tiplied by the estimated BMI. PARATHYROID PROFILE 1 2 3 Most recent to oldest [Reference Range]: 1.15 mMol/L (01/13/16 4:31 AM) 1.05 mMol/L (01/12/16 12:18 AM) 1.08 mMol/L (01/11/16 12:30 AM) Ca Ion WB [1.05-1.25 mMol/L] 1.11 mMol/L (01/13/16 4:31 AM) 1.08 mMol/L (01/12/16 12:18 AM) 1.10 mMol/L (01/11/16 12:30 AM) Ca Norm WB [1.05-1.25 mMol/L] TOXICOLOGY 1 2 3 Most recent to oldest [Reference Range]: <0.003 % (01/10/16 8:23 AM) Etoh (%) <3.0 mg/dL (01/10/16 8:23 AM) Ethanol Lvl HEMATOLOGY 1 2 3 Most recent to oldest [Reference Range]: 3.8 K/CMM (01/18/16 12:43 AM) 4.3 K/CMM (01/15/16 5:19 AM) 4.5 K/CMM (01/13/16 4:31 AM) WBC [3.7-10.4 K/CMM] 2.93 M/CMM *LOW* (01/18/16 12:43 AM) 2.92 M/CMM *LOW* (01/15/16 5:19 AM) 2.76 M/CMM *LOW* (01/13/16 4:31 AM) RBC [4.70-6.10 M/CMM] 8.7 g/dL *LOW* (01/18/16 12:43 AM) 8.7 g/dL *LOW* (01/15/16 5:19 AM) 8.2 g/dL *LOW* (01/13/16 4:31 AM) Hgb [14.0-18.0 g/dL] 25.4 % *LOW* (01/18/16 12:43 AM) 25.2 % *LOW* (01/15/16 5:19 AM) 24.0 % *LOW* (01/13/16 4:31 AM) Hct [42.0-54.0 %] 86.9 fL (01/18/16 12:43 AM) 86.0 fL (01/15/16 5:19 AM) 86.9 fL (01/13/16 4:31 AM) MCV [80.0-94.0 fL] 29.6 pg (01/18/16 12:43 AM) 29.9 pg (01/15/16 5:19 AM) 29.7 pg (01/13/16 4:31 AM) MCH [27.0-31.0 pg] 34.0 g/dL (01/18/16 12:43 AM) 34.7 g/dL (01/15/16 5:19 AM) 34.2 g/dL (01/13/16 4:31 AM) MCHC [32.0-36.0 g/dL] 13.6 % (01/18/16 12:43 AM) 13.5 % (01/15/16 5:19 AM) 13.3 % (01/13/16 4:31 AM) RDW [11.5-14.5 %] 171 K/CMM (01/18/16 12:43 AM) 142 K/CMM (01/15/16 5:19 AM) 112 K/CMM *LOW* (01/13/16 4:31 AM) Platelet [133-450 K/CMM] 7.3 fL *LOW* (01/18/16 12:43 AM) 7.9 fL (01/15/16 5:19 AM) 8.4 fL (01/13/16 4:31 AM) MPV [7.4-10.4 fL] 51.2 % (01/18/16 12:43 AM) 63.1 % (01/15/16 5:19 AM) 65.1 % (01/13/16 4:31 AM) Segs [45.0-75.0 %] 21.3 % (01/18/16 12:43 AM) 16.4 % *LOW* (01/15/16 5:19 AM) 17.7 % *LOW* (01/13/16 4:31 AM) Lymphocytes [20.0-40.0 %] 15.3 % *HI* (01/18/16 12:43 AM) 11.8 % (01/15/16 5:19 AM) 12.6 % *HI* (01/13/16 4:31 AM) Monocytes [2.0-12.0 %] 11.3 % *HI* (01/18/16 12:43 AM) 8.2 % *HI* (01/15/16 5:19 AM) 4.1 % *HI* (01/13/16 4:31 AM) Eosinophils [0.0-4.0 %] 0.9 % (01/18/16 12:43 AM) 0.5 % (01/15/16 5:19 AM) 0.5 % (01/13/16 4:31 AM) Basophils [0.0-1.0 %] 1.9 K/CMM (01/18/16 12:43 AM) 2.7 K/CMM (01/15/16 5:19 AM) 2.9 K/CMM (01/13/16 4:31 AM) Segs-Bands # [1.5-8.1 K/CMM] 0.8 K/CMM *LOW* (01/18/16 12:43 AM) 0.7 K/CMM *LOW* (01/15/16 5:19 AM) 0.8 K/CMM *LOW* (01/13/16 4:31 AM) Lymphocytes # [1.0-5.5 K/CMM] 0.6 K/CMM (01/18/16 12:43 AM) 0.5 K/CMM (01/15/16 5:19 AM) 0.6 K/CMM (01/13/16 4:31 AM) Monocytes # [0.0-0.8 K/CMM] 0.4 K/CMM (01/18/16 12:43 AM) 0.4 K/CMM (01/15/16 5:19 AM) 0.2 K/CMM (01/13/16 4:31 AM) Eosinophils # [0.0-0.5 K/CMM] 14.2 seconds (01/18/16 12:43 AM) PT [12.0-14.7 seconds] 1.08 (01/18/16 12:43 AM) INR [0.85-1.17] 32.5 seconds (01/18/16 12:43 AM) PTT [22.9-35.8 seconds] 105 seconds (01/11/16 12:30 AM) 136 seconds *HI* (01/10/16 12:40 PM) 105 seconds (01/10/16 8:23 AM) ACT (TEG) Rapid [86-118 seconds] 0.5 minutes *NA* (01/11/16 12:30 AM) 0.8 minutes *NA* (01/10/16 12:40 PM) 0.5 minutes *NA* (01/10/16 8:23 AM) [place] Rapid 3.7 minutes *LOW* (01/18/16 12:43 AM) 4.6 minutes *LOW* (01/17/16 12:54 PM) R-time [5.0-10.0 minutes] 0.6 minutes (01/11/16 12:30 AM) 0.9 minutes *HI* (01/10/16 12:40 PM) 0.6 minutes (01/10/16 8:23 AM) R-time Rapid [0.4-0.7 minutes] 1.5 minutes (01/18/16 12:43 AM) 1.3 minutes (01/17/16 12:54 PM) K-time [1.0-3.0 minutes] 1.9 minutes (01/11/16 12:30 AM) 2.4 minutes *HI* (01/10/16 12:40 PM) 2.4 minutes *HI* (01/10/16 8:23 AM) K-time Rapid [0.6-2.3 minutes] 68.7 degrees (01/18/16 12:43 AM) 71.9 degrees (01/17/16 12:54 PM) Angle [53.0-72.0 degrees] 72 degrees (01/11/16 12:30 AM) 63 degrees *LOW* (01/10/16 12:40 PM) 64 degrees (01/10/16 8:23 AM) Angle Rapid [64-80 degrees] 60.9 mm (01/18/16 12:43 AM) 64.1 mm (01/17/16 12:54 PM) Max Amp [50.0-70.0 mm] 57 mm (01/11/16 12:30 AM) 52 mm (01/10/16 12:40 PM) 55 mm (01/10/16 8:23 AM) Max Amplitude Rapid [52-71 mm] 7.8 K d/sc (01/18/16 12:43 AM) 8.9 K d/sc (01/17/16 12:54 PM) G-value [4.5-11.0 K d/sc] 6.6 K d/sc (01/11/16 12:30 AM) 5.3 K d/sc (01/10/16 12:40 PM) 6.0 K d/sc (01/10/16 8:23 AM) G-value Rapid [5.0-11.6 K d/sc] 1.1 % (01/11/16 12:30 AM) 0.0 % (01/10/16 12:40 PM) 0.4 % (01/10/16 8:23 AM) Estimated % Lysis Rapid [0.0-7.5 %] 0.9 % (01/18/16 12:43 AM) 0.4 % (01/17/16 12:54 PM) Ly30 [0.0-7.5 %] 1.9 (01/18/16 12:43 AM) 2.0 (01/17/16 12:54 PM) Coag Index [-3.0-3.0] Thrombelastograph results show shortened value of R. This finding is suggestive of enzymatic hypercoagulation. CPT:49993 *NA* (01/18/16 12:43 AM) Thrombelastograph results show shortened value of R. This finding is suggestive of enzymatic hypercoagulation. CPT:65505 *NA* (01/17/16 12:54 PM) TEG Interp See Note (01/18/16 12:43 AM) See Note (01/17/16 12:54 PM) TEG Data Immunizations No data available for this section Procedures Procedure Date Related Diagnosis Body Site ACD - Automatic cardiac defibrillator procedure Appendectomy Bilateral replacement of hip joints CABG x 5 - Coronary artery bypass grafts x 5 Knee replacement1 Laparoscopic sleeve gastrectomy 1bil Social History Social History Type Response Smoking Status Never smoker; Exposure to Tobacco Smoke None; Cigarette Smoking Last 365 Days No; Reg Smoking Cessation Counseling Yes Assessment and Plan Extracted from: Title: Hospitalist Progress Note Author: Chace Jackson Date: 01/24/16 Assessment/Plan 1. Vertebral fractures of T7/T8 vertebral bodies - secondary to mechanical 5 foot fall. -s/p T5-T10 PSF, and drain removal. -Brilinta restarted -c/w TLSO brace when OOB. Keep HOB >30 deg as per Neuro surg. No further surgical intervention planned. -c/w pain control 2. Coronary artery disease s/p CABG -stable -c/w bblocker, statin, imdur, acei, and brilinta restarted. 3. Right sided hemothorax - s/p placement and removal of right sided chest tubes -stable 4. Essential HTN - stable -c/w current regimen 5. Multiple rib fractures -pain is controlled -c/w incentive spirometry 6. Traumatic SAH -neuro exam stable -no intervention planned as per neuro surg -Brilinta restarted and will follow neuro exam closely 7. Kidney laceration - secondary to mechanical fall -stable, continue with conservative management Prophylaxis Brilinta restarted today Disposition Home with home healthonce approved by workers comp. Will need walker, and bedside commode. MHUT is primary. If any questions, please call Dr. Jackson [phone] Orders: Brilinta (ticagrelor), 90 mg, Route: PO, Drug form: TAB, Q12H, Dosing Weight 121.818, kg, Start date: 01/24/16 21:00:00 CDT, Duration: 30 day, Stop date: 02/23/16 9:00:00 CDT Change Attending MD Extracted from: Title: APMS Consult Note Author: Brayden Wen MD Date: 01/19/16 Patient: FROY MARCELINO Age: 60 years Sex: Male : 1955 Associated Diagnoses: None Author: Brayden Wen MD Basic Information Referral source Reason for consultation: Complex Acute Pain Chief Complaint low back pain History of Present Illness The patient presents with Location: lower back Quality: sharp, achy Severity: 12/29 Timing: intermittent Duration: since brace fitting Context: L2 fx s/p fall Modifying factors: worse with brace fitting and movement, better with . 60 yo man with CAD, CHF, tSAH, hemothorax s/p chest tube x 2, and T7/T8 fx s/p T5- T10 post fusion now recovering well on the floor had significant pain this morning with TLSO brace fitting. Histories Past Medical History: Resolved HI (myocardial infarction) (55528189): Resolved. Stented coronary artery (1438356942): Resolved. AICD (automatic cardioverter/defibrillator) present (5355399885): Resolved. HTN (hypertension) (8902530280): Resolved. Family History: No family history items have been selected or recorded. Procedure history: CABG x 5 - Coronary artery bypass grafts x 5 (794846478). ACD - Automatic cardiac defibrillator procedure (136717752). Bilateral replacement of hip joints (5880931628). Knee replacement (071079775). Comments: 01/10/2016 19:04 - Callie Bañuelos RN emil Laparoscopic sleeve gastrectomy (8927872612). Appendectomy (073498774). Social History Social & Psychosocial Habits Tobacco 01/10/2016 Use: Never smoker Exposure to Tobacco Smoke None Cigarette Smoking Last 365 Days No Reg Smoking Cessation Counseling Yes . Health Status Allergies: Allergic Reactions (All) Severity Not Documented NKDA- No reactions were documented., Allergies (1) ActiveReaction NKDANone Documented Current medications: (Selected) Inpatient Medications Ordered Ancef + sodium chloride 0.9% INJ 100 mL: 2 gm, 100 ml/hr, IVPB, ABXQ8H Lasix 20 mg oral tablet: 20 mg, 1 tab, PO, Daily Lovenox: 30 mg, 0.3 mL, SUB-Q, [id number] MiraLax: 17 gm, 1 pkt, PO, Daily Robaxin: 1,000 mg, IV, Q8H Saline Flush 0.9%: 10 mL, IVP, PRN, PRN: Line Flush Tylenol: 1,000 mg, 2 tab, PO, Q6H Visipaque 320mg/ml: 149 mL, IVP, ONCALL atorvastatin: 80 mg, 1 tab, PO, Bedtime carvedilol: 12.5 mg, 1 tab, PO, Q12H gabapentin 300 mg oral capsule: 300 mg, 1 cap, PO, Q8H isosorbide mononitrate extended release: 60 mg, 1 tab, PO, QAM lisinopril: 5 mg, 1 tab, PO, Daily oxyCODONE 5 mg oral tablet: 10 mg, PO, Q4H, PRN: Pain Score 7-10 oxyCODONE 5 mg oral tablet: 5 mg, 1 tab, PO, Q4H, PRN: Pain Score 4-6 senna: 8.6 mg, 1 tab, PO, Daily sodium chloride 0.9% 1000 ml INJ 1,000 mL: 75 ml/hr, IV, Stop: 02/17/16 0:00:00 CDT spironolactone: 12.5 mg, 0.5 tab, PO, Daily tramadol: 50 mg, 1 tab, PO, Q6H, PRN: Pain Score 1-3 Documented Medications Documented Brilinta (ticagrelor) 90 mg oral tablet: 90 mg, 1 tab, PO, BID, 0 Refill(s) Caltrate 600 + D: 1 tab, PO, Daily, 0 Refill(s) atorvastatin 80 mg oral tablet: 80 mg, 1 tab, PO, Bedtime carvedilol 25 mg oral tablet: 25 mg, 1 tab, PO, BID, 180 tab cholecalciferol: 1 tab, PO, Daily, 0 Refill(s) docusate: 100 mg, PO, PRN, 0 Refill(s) ferrous sulfate: 1 tab, PO, Daily, 0 Refill(s) furosemide 20 mg oral tablet: 20 mg, 1 tab, PO, Daily, 30 tab, 0 Refill(s) isosorbide mononitrate 60 mg oral tablet, extended release: 60 mg, 1 tab, PO, QAM, 30 tab, 0 Refill(s) lisinopril 10 mg oral tablet: 10 mg, 1 tab, PO, BID, 30 tab, 0 Refill(s) spironolactone 25 mg oral tablet: 25 mg, 1 tab, PO, Daily, for 30 day, 30 tab, 3 Refill(s), Medications (19) Active Scheduled: (14) acetaminophen 500 mg TAB 1,000 mg 2 tab, PO, Q6H atorvastatin 80mg tab 80 mg 1 tab, PO, Bedtime carvedilol 12.5 mg TAB 12.5 mg 1 tab, PO, Q12H ceFAZolin 1gm inj (IV) + sodium chloride 0.9% INJ 100 mL 2 gm, IVPB, ABXQ8H enoxaparin 30 mg/0.3 ml INJ 30 mg 0.3 mL, SUB-Q, [id number] furosemide 20 mg TAB 20 mg 1 tab, PO, Daily gabapentin 300 mg CAP 300 mg 1 cap, PO, Q8H iodixanol 320 mg/ml 50 ml VL 149 mL, IVP, ONCALL isosorbide mononitrate 60 mg ERT 60 mg 1 tab, PO, QAM lisinopril 5 mg TAB 5 mg 1 tab, PO, Daily methocarbamol 1,000 mg, IV, Q8H polyethylene glycol 17 gm packet 17 gm 1 pkt, PO, Daily senna 8.6 mg TAB 8.6 mg 1 tab, PO, Daily spironolactone 12.5 mg (1/2 of 25 mg) TAB 12.5 mg 0.5 tab, PO, Daily Continuous: (1) sodium chloride 0.9% 1000 ml INJ 1,000 mL 1,000 mL, IV, 75 ml/hr PRN: (4) oxyCODONE 10 mg, PO, Q4H oxyCODONE IR 5 mg TAB 5 mg 1 tab, PO, Q4H sodium chloride 0.9% 10 ml flush syr BD 10 mL, IVP, PRN traMADol 50 mg TAB 50 mg 1 tab, PO, Q6H Problem list: All Problems CABG (coronary artery bypass graft) / ICD-9-CM V45.81 / Provisional CABG x 5 - Coronary artery bypass grafts x 5 / SNOMED CT 687800069 / Confirmed CAD (coronary artery disease) / ICD-9-CM 414.00 / Confirmed Cardiac function test abnormal / SNOMED CT 843135010 / Confirmed DM - Diabetes mellitus / SNOMED CT 544555878 / Confirmed Gout / ICD-9-CM 274.9 / Confirmed HLD (hyperlipidemia) / ICD-9-CM 272.4 / Confirmed Ischemic cardiomyopathy / ICD-9-CM 414.8 / Confirmed Preoperative state / SNOMED CT 743219937 / Confirmed Sleep apnea / SNOMED CT 543218319 / Confirmed, Active Problems (10) CABG (coronary artery bypass graft) CABG x 5 - Coronary artery bypass grafts x 5 CAD (coronary artery disease) Cardiac function test abnormal DM - Diabetes mellitus Gout HLD (hyperlipidemia) Ischemic cardiomyopathy Preoperative state Sleep apnea Review of Systems Constitutional: Negative except as documented in history of present illness. Cardiovascular: Negative except as documented in history of present illness. Eye: Negative except as documented in history of present illness. Ear/Nose/Mouth/Throat: Negative except as documented in history of present illness. Respiratory: Negative except as documented in history of present illness. Gastrointestinal: Negative except as documented in history of present illness. Musculoskeletal: Negative except as documented in history of present illness. Neurologic: Negative except as documented in history of present illness. Psychiatric: Negative except as documented in history of present illness. Endocrine: Negative except as documented in history of present illness. Hematology/Lymphatics: Negative except as documented in history of present illness. Integumentary: Negative except as documented in history of present illness. Physical Examination VS/Measurements Vital Signs (last 24 hrs) Last Charted Temp Oral97.9 DegF (JAN 18:) Heart Rate Einckslzbh71 bpm (JAN 18:) Resp Rate 18 BRMIN (JAN 18:) SBP92 mmHg (JAN 18:) DBP60 mmHg (JAN 18:) BiI793 % (SEP 30 11:43) General: Alert and oriented, No acute distress. Eye: Normal conjunctiva. HENT: Normal hearing. Neck: Supple. Respiratory: Symmetrical chest wall expansion. Cardiovascular: Normal rate, Regular rhythm, AICD left chest. Gastrointestinal: Soft, Non-tender. Musculoskeletal Normal range of motion. Normal strength. Integumentary: Warm, Dry, [place]. Neurologic: Alert, Oriented. Cognition and Speech: Oriented, Speech clear and coherent. Psychiatric: Cooperative. Review / Management Results review: Labs (Last four charted values) WBC 3.8(JAN 17)4.3(JAN 14)4.5(JAN 12)4.4(JAN 11) Hgb L 8.7(JAN 17)L 8.7(JAN 14)L 8.2(JAN 12)L 7.5(JAN 11) Hct L 25.4(JAN 17)L 25.2(JAN 14)L 24.0(JAN 12)L 22.2(JAN 11) Plt 171(JAN 17)142(JAN 14)L 112(JAN 12)L 92(JAN 11) Na 137(JAN 17)141(SEP )138(SEP 24)140(JAN 11) K 4.2(JAN 17)4.3(JAN 14)4.2(DEC 24)4.0(JAN 11) CO2 28(JAN 17)27(SEP )31(SEP )28(JAN 11) Cl 102(JAN 17)104(JAN 14)103(JAN 12)104(JAN 11) Cr 0.93(JAN 17)0.87(JAN 14)0.87(JAN 12)0.73(JAN 11) BUN 18(JAN 17)14(JAN 14)13(SEP 24)18(JAN 11) Glucose Random H 129(JAN 17)93(JAN 14)H 103(DEC 24)99(JAN 11) Mg H 2.6(DEC 24)2.1(JAN 11)2.1(JAN 10)2.1(JAN 09) Phos 2.8(DEC 24)2.6(SEP 23)H 4.8(DEC 22)3.1(JAN 09) Ca L 8.3(JAN 17)L 8.2(JAN 14)L 7.9(JAN 12)L 7.7(JAN 11) PT 14.2(JAN 17) INR 1.08(JAN 17) PTT 32.5(JAN 17). Chest x-ray results ECG interpretation Impression and Plan Diagnosis Orders Education and Follow-up: Counseled: Regarding treatment, Regarding medications. 60 yo man with CAD, CHF, tSAH, hemothorax s/p fall from 6 feet 1 week ago now with T5-T10 posterio fusion and acute pain after brace fitting. - Oxycodone 5mg/10mg prn pain 4-6/7-10 - Robaxin 1000mg q8h APMS will cont to follow, please call [phone] for any questions. Brayden Wen MD Anesthesiology PGY-3 Acute Pain Management Service Addendum TEACHING PHYSICIAN ADDENDUM: I saw and personally examined this patient and discussed the by plan of care with this resident. I have reviewed the note below and agree with the [place], history, examination findings and the plan of care. Ry King MD on 01/21/2016 09:07 Extracted from: Title: STICU H&P Author: Romeo Guillen Date: 01/10/16 [facility] Acceptance Note: Today's Date: 01/10/2016 Brief Summary of Hospital Stay: Patient is a 60 year old man who presents to hospital as a Level 1 following fall from height (5 feet, no LOC). At the time of interview the patient endorsed pain in R chest wall that is exacerbated by movement and palpation and alleviated by rest. The patient denies numbness and paresthesia. Takes Brilinta daily for his extensive cardiac history. Transferred to STICU for close monitoring of his hemoglobin and chest tube output. Current Condition: stable In Hospital Operations: none Daily Events: PMH CAD ([place] in 1998) HTN PSH Quintuple Bypass surgery (2003) 5 Stents (2181-4306) Defibrillator (2014) 2 Hip Replacements (2006, 2008) 2 Knee Replacements (2002) Stomach sleeve surgery (2012) Appendectomy (when young) MEDS Lasix 20mg daily + PRN for weight gain Lisinopril 10 mg Q12 Spironolactone 12.5 mg daily Atorvastatin 80 mg daily Carvedilol 25mg BID Isosorbide Mononitrate 60mg daily Brilinta (Ticagrelor) 90 mg Q12 ALL NKDA SH Works at [employer] Right handed - Etoh - [employer] - Drugs FH CAD HTN Assessment: Vital Signs: VitalsTmp(F)Tmp(C)[id number] 01/09 13:00 [id number]------ 01/09 12:3094.734.83axil--------[id number]------ 01/09 11:56 121/85---898306943.0L/m--- 01/09 10:17 135/1453603763652.0L/m--- 01/09 09:4296.735.76yxny194/00258520802969.0L/m--- 24 Hr Tmax: 97.4F (36.33c) at 01/09 07:54Vital Signs are the last 5 in the past 48 hours. 24 Hr Tmin: 94.7F (34.83c) at 01/09 12:30Weights are the last 5 in 60 days, plus initial. DateWt(kg)Wt(lb)Ht(cm)Ht(in)MethodBMIBSA 01/09 (initial)117.27 258.00Estimated 32.32.49 90.50 75.00Stated (no point of care glucose results charted in last 24 hours) Most Recent Scores: 01/10/16Pain Intensity NRS (0-10)9 01/10/16Glasgow Coma Score15 01/10/16[place] Fall Score0 Lines, Tubes, and Drains: 01/10/2016 09:51 Chest Tube Assessment: Right posterior 36 [place] 01/10/2016 09:51 Arterial Lines: Non-Tunneled Femoral artery Right 01/10/2016 08:20 Chest Tube Assessment: Right lateral 32 [place] 01/10/2016 08:09 Peripheral Lines: Antecubital Right 18 gauge Over the needle catheter 01/10/2016 08:09 Peripheral Lines: Antecubital Left 18 gauge Over the needle catheter (no surgical procedures documented) Physical Examination: Neuro: GCS 15, alert and oriented x4 Head: normocephalic, atraumatic Eyes: EOMI, PERRL Nose/throat: patent, atraumatic Neck: C collar in place Chest: no subq emphysema Abdomen: soft, nontender, nondistended Pelvis: stable to compression Genital: no lesions, gresham in place Back: midline tenderness in low thoracic spine, no wounds Extremities: moves all extremities, intact sensation throughout Vascular: 1+ pulses in all extremitites Medications: Scheduled Meds (3): 01/10/16 18:00 acetaminophen (Tylenol) 1,000 mg PO Q6H [eMAR Schedule: (01/10/16) 18:00; (01/11/16) 00:00] 01/10/16 16:00 gabapentin (gabapentin 300 mg oral capsule) 300 mg PO Q8H [eMAR Schedule: (01/10/16) 16:00; (01/11/16) 00:00] 01/10/16 18:00 tramadol 100 mg PO Q6H [eMAR Schedule: (01/10/16) 18:00; (01/11/16) 00:00] Unscheduled Meds (1): 01/10/16 8:41 iodixanol (Visipaque 320mg/ml) 149 mL IVP ONCALL PRN Meds (7): 01/10/16 12:42 Dextrose 50% in Water IV (Dextrose 50% Syringe) 12.5 gm IVP PRN 01/10/16 12:42 Dextrose 50% in Water IV (Dextrose 50% Syringe) 25 gm IVP PRN 01/10/16 12:42 Insulin regular 5 unit SUB-Q PRN 01/10/16 12:42 Insulin regular 8 unit SUB-Q PRN 01/10/16 12:42 Insulin regular 12 unit SUB-Q PRN 01/10/16 12:43 oxyCODONE (oxyCODONE 5 mg oral tablet) 5 mg PO Q4H 01/10/16 8:19 sodium chloride (Saline Flush 0.9%) 10 mL IVP PRN One Time Meds (7): 01/10/16 8:18 (Completed) fentaNYL 50 microgram IVP ONCE 01/10/16 9:01 (Completed) fentaNYL 50 microgram IVP ONCE 01/10/16 9:47 (Completed) fentaNYL 50 microgram IVP ONCE 01/10/16 9:47 (Completed) fentaNYL 50 microgram IVP ONCE 01/10/16 9:48 (Completed) fentaNYL 50 microgram IVP ONCE 01/10/16 14:20 (Ordered) hydromorphone (Dilaudid) 0.5 mg IVP ONCE 01/10/16 11:16 (Completed) levETIRAcetam + sodium chloride 0.9% INJ 100 mL (Keppra + sodium chloride 0.9% INJ 100 mL) 1,000 mg IVPB ONCE 400 ml/hr Continuous Infusions (2): 01/10/16 13:13 Isolyte S (PH 7.4) 1000 mL 1,000 mL 1,000 mL 50 ml/hr 01/10/16 8:44 sodium chloride 0.9% INJ 250 mL 250 mL scalloper for use with blood product administration DVT prophylaxis: holding due to active bleeding Lines/Tubes: Central venous access: none Right Chest tube: on suction, 1800 cc output over 24 hours, no air leak present Right Chest tube: on suction, 200 cc output over 24 hours, no air leak present Gresh[place] necessary for: strict I/Os Musculoskeletal/Skin: Activity: bedrest, keep patient flat, logroll Weightbearing status: NWB BLE Skin/wound examination: no open wounds, R chest tubes x2 Extremity examination: sensation/motor intact in all 4 extremitites Disposition: PT/OT Plan: will consult SW Plan: pending CM Plan: pending Assessment and Plan: Patient is a 60 year old man who arrived as a Level 1 s/p fall from 5.5 feet. Initial imaging also demonstrated Parafalcine TSAH, Left 6-8 and right 9,10 rib fx, a grade 3 liver laceration, T9 and T10 TP fx, and T7/8 Vertebral Body fx. Injuries and plan as follows: Injuries:Consults/Plans: 1. T7/8 Vertebral Body fx1. NSGY Consulted 2. Parafalcine TSAH2. NSGY Consulted 3. grade 3 renal laceration3. Trend H/H and serial abdominal exams 4. T9 and T10 TP fx4. Nothing to do 5. Left 6-8 and right 9,10 rib fx5. VEP/IS 6. Right hemopneumothorax6. s/p chest tube placement x2 NEURO T7/8 Vertebral Body fx: MRI thoracic spine pending EP clearance ([facility]) Strict T/L spine precautions, keep flat, log roll only. Patient will need surgical fixation, per NSGY SAH: Repeat CT brain unchanged, no new hemorrhage Will give fosphenytoin load and continue phenytoin for 1 week HEENT no acute issues CV severe cardiac history s/p bypassx5 and stentx5 BP stable, normal rate f/u ECHO f/u hospital records PULM r hemothorax improving CXR satting 100% on NC 4L 2 R chest tubes in place -lateral 1700 mL output, posterior 200ml output GI NPO Barrium swallow: Esophageal dismotility and post-surgical changes suggstive of Arturo fundiplication noted. Negative for extravasation of contrast. Isolyte @ 50 ml/hour gresham in place adequate UOP will monitor ENDO on SSI will monitor HEME/ID given 6 pack of platelets and 2 units ffp for Brillinta medication acute blood loss anemia hgb 8.9 MSK/Skin no open wounds no MSK issues DISPO: LIU Guillen MD [facility] #[id number] STICU Attending Addendum Diagnoses: Atherosclerotic disease of [place] coronary artery (HI in 1998) (pre-existing) Personal histort of myocardial infarction (pre-existing) Essential hypertension (pre-existing) Cardiac Quintuple Bypass surgery (pre-existing) Cardiac Stents (pre-existing) Cardiac Defibrillator (2014) (pre-existing) Hip Arthroplasty, side unspecified x 2 (2006, 2008) (pre-existing) Knee Arthroplasty x 2 (2002) (pre-existing) Gastric sleeve surgery (2012) (pre-existing) Personal history of Appendectomy (pre-existing) T7/8 Vertebral Body fracture (admission) Parafalcine traumatic subarachnoid hemorrhage (admission) Grade 3 renal laceration (admission) T9 and T10 Transverse process fracture (admission) Left 6-8 and right 9,10 rib fracture (admission) Right hemopneumothorax (admission) Acute blood loss anemia (admission) Malnutrition of moderate degrew (admission) I have personally examined the patient and agree with the above note and included plans as written with exceptions noted. Care plan discussed and coordinated with allied health team as documented. Due to the high probability of imminent or life threatening deterioration, the patient requires ICU level care. Critical Care Time (excluding procedures): 33 minutes
--- OUTSIDE RECORDS SUMMARY | 2018-03-05 06:47 | XMS REPORT | Summary of Care ---
Author Author [facility] Organization [facility] Address Unknown Phone Unavailable Encounter HQ Rosalinda(FIN) [id number] Date(s): 03/10/17 - 03/11/17 [facility] [address] [place] [phone] Vital Signs No data available for this [...] (hypertension)(Confi rmed) Ischemic 11/08/10 Active cardiomyopathy(Confi rmed) [place] (myocardial Resolved infarction)(Confirme d) Obesity(Confirmed) Active Preoperative [...]
--- OUTSIDE RECORDS SUMMARY | 2018-03-05 06:47 | XMS REPORT | Summary of Care ---
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
--- OUTSIDE RECORDS SUMMARY | 2018-03-05 06:47 | XMS REPORT | Summary of Care ---
Author Author [facility] Address Unknown Phone Unavailable Encounter HQ Rosalinda(JORJE) [phone] Date(s): 07/18/16 - 08/16/16 [facility] Discharge Disposition: Home or Self Care Attending [...] (hypertension)(Confi rmed) Ischemic 11/08/10 Active cardiomyopathy(Confi rmed) [place] (myocardial Resolved infarction)(Confirme d) Obesity(Confirmed) Active Preoperative [...]
--- OUTSIDE RECORDS SUMMARY | 2018-03-05 06:47 | XMS REPORT | Summary of Care ---
Author Author [facility] Address Unknown Phone Unavailable Encounter HQ Rosalinda(JORJE) [phone] Date(s): 06/12/16 - 07/11/16 [facility] Discharge Disposition: Home or Self Care Attending [...] (hypertension)(Confi rmed) Ischemic 11/08/10 Active cardiomyopathy(Confi rmed) [place] (myocardial Resolved infarction)(Confirme d) Obesity(Confirmed) Active Preoperative [...]
--- OUTSIDE RECORDS SUMMARY | 2018-03-05 06:48 | XMS REPORT | Summary of Care ---
Author Author ROSHAN PEOPLES D.O. Organization Unknown Address Unknown Phone Unavailable Care Team Providers Care Photograph Inspector Name Role Phone ROSHAN PEOPLES D.O. Unavailable Unavailable ROSHAN IBRAHIM Unavailable Unavailable TONY GOSS M.D. Unavailable Unavailable Unavailable Unavailable Functional Status Name Dates Details Functional status health issues are not documented Status: Name Dates Details Cognitive status health issues are not documented Status: Problems Name Dates Details Acute recurrent sinusitis (461.9, J01.91) Status: Active Past myocardial infarction (412, I25.2) Status: Active Need for hepatitis B vaccination (V05.3, Z23) Status: Active Need for Zostavax administration (V04.89, Z23) Status: Active Cerumen impaction (380.4, H61.20) Status: Active CHF (NYHA class II, ACC/AHA stage C) (428.0, I50.9) Status: Active Essential (primary) hypertension (401.9, I10) Status: Active Arteriosclerosis of coronary artery (414.00, I25.10) Status: Active Medications Name Dates Details Lisinopril 10 MG Oral Tablet TAKE 1 TABLET DAILY. * Start : 11-Apr-2011 Active 15 Tablet Bottle Brilinta 90 MG Oral Tablet TAKE 1 TABLET TWICE DAILY. * Refills: 0 Active Caltrate 600 TABS TAKE 1 TABLET DAILY. * Refills: 0 Active Atorvastatin Calcium 80 MG Oral Tablet TAKE 1 TABLET AT BEDTIME. * Quantity: 90 Refills: 2 Active Carvedilol 12.5 MG Oral Tablet TAKE 1 TABLET TWICE DAILY. * Quantity: 180 Refills: 0 Active Docusate Sodium 100 MG Oral Tablet TAKE 1 TABLET DAILY DIRECTED. * Refills: 0 Active Ferrous Sulfate 325 MG CAPS TAKE 1 CAPSULE DAILY * Refills: 0 Active Furosemide 20 MG Oral Tablet TAKE 1 TABLET DAILY. * Refills: 0 Active Isosorbide Mononitrate ER 60 MG Oral Tablet Extended Release 24 Hour TAKE 1 TABLET ONCE DAILY. * Refills: 0 Active Vitamin TABS TAKE 1 TABLET DAILY. * Refills: 0 Active Spironolactone 25 MG Oral Tablet TAKE 1 TABLET DAILY. * Refills: 0 Active Vitamin D TABS TAKE 1 TABLET DAILY * Refills: 0 Active Allergies and Adverse Reactions Name Dates Details No Known Allergies (Allergy) Status: Active Past Medical History Name Dates Details History of Arthritis (V13.4) Status: Resolved History of Coronary Artery Disease (V12.59) Status: Resolved History of high cholesterol (V12.29, Z86.39) Status: Resolved History of Need for vaccination for Strep pneumoniae (V03.82, Z23) Status: Resolved Past myocardial infarction (412, I25.2) Status: Resolved Personal history of gout (V12.29, Z87.39) Status: Resolved Procedures Procedure Dates Details History of Knee Surgery Completed History of Pacemaker Placement Completed Immunization Name Dates Details Pneumococcal polysaccharide vaccine, 23 valent Lot #: [id number] on: 11-May-2013 Hepatitis B Lot #: [id number] on: 27-Dec-2014 Zoster (Zostavax) Lot #: [id number] on: 27-Dec-2014 Hep B (Recombivax) Lot #: [id number] on: 27-Jan-2015 Family History Name Dates Details Family history of Diabetes Mellitus (V18.0) Status: Active Name Dates Details Family history of Coronary Artery Disease (V17.49) Status: Active Social History Name Dates Details - Status: Name Dates Details Former smoker Vital Signs Date Test Result Details [id number] Physical Findings 1 Status: Comments: PHQ-9 Adult Depression Screening [id number] BP Systolic 129 mm[Hg] Status: BP Diastolic 81 mm[Hg] Status: Heart Rate 59 /min Status: Height 63 in Status: Weight 288 lb Status: Body Mass Index Calculated 51.02 kg/m2 Status: Body Surface Area Calculated 2.26 m2 Status: Temperature 98.6 f Status: Comments: Method: Temporal Respiration Rate 16 /min Status: Physical Findings 0 Status: Comments: Alcohol Screen - How many times in the past yr have you had 5 (for M) or 4 (for F) or 4 (for all > 65yrs) or more drinks in a day? Results Date Description Value Details Results not documented Plan of Care Name Dates Details Planned Observations Planned Goals not documented Interventions Provided Instructions* Patient Specific Education Given; Done: 25 Nov 2017 Plan* Right Ear Cerumen Impaction - New. Right ear irrigated and cerumen was removed without incidence. Pt reports immediate improvement in hearing. Discussed that there is some irritation from the impaction. No special therapy needed for irritation at this point in time. Discussed using debrox or hydrogen peroxide. Use a few drops in right ear and then let sit for a few minutes and then rinse with warm water in shower * CAD/CHF/HTN/HLD - stable. Continue current regimen per cardiology. F/U cardiology * Follow-up in 6 months for physical, sooner if needed Instructions Name Dates Details Instructions not documented Encounters Appointment; ROSHAN PEOPLES D.O. Encounter Diagnosis: Problem not documented On: 25-Nov-2017 15:15
--- OUTSIDE RECORDS SUMMARY | 2018-03-05 06:48 | XMS REPORT ---
Author Author [facility] Address Unknown Phone Unavailable Care Team Providers Care Telecommunications Cable Jointer Name Role Phone MARLO HICKMAN Unavailable Unavailable Problems This patient has no known problems. Allergies, Adverse Reactions, Alerts This patient has no known allergies or adverse reactions. Medications This patient has no known medications. Results Test Description Test Time Test Comments Text Results Atomic Results Result Comments HEMOGLOBIN A1C 2018-02-12 19:57:00 HEMOGLOBIN A1C (BEAKER) (test mynq=440) 5.6 % 4.3-6.1 LIPID [id number] 15:09:00* Test Item Value Reference Range Comments TRIGLYCERIDES (BEAKER) (test amrx=160) 173 mg/dL CHOLESTEROL (BEAKER) (test oowh=037) 187 mg/dL HDL CHOLESTEROL (BEAKER) (test svzp=734) 32 mg/dL LDL CHOLESTEROL CALCULATED (BEAKER) (test ovaz=582) 120 mg/dL Triglyceride Reference Range: Low Risk <150 Borderline 150-199 High Risk 200-499 Very High Risk >=500Cholesterol Reference Range: Low Risk <200 Borderline 200-239 High Risk >240HDL Cholesterol Reference Range: Low Risk >=60 High Risk <40LDL Cholesterol Reference Range: Optimal <100 Near Optimal 100-129 Borderline 130-159 High 160-189 Very High >=190 BASIC METABOLIC [id number] 15:09:00* Test Item Value Reference Range Comments SODIUM (BEAKER) (test yrnc=959) 141 meq/L 136-145 POTASSIUM (BEAKER) (test gqpg=111) 3.7 meq/L 3.5-5.1 CHLORIDE (BEAKER) (test gxmq=974) 107 meq/L 98-107 CO2 (BEAKER) (test fvrl=686) 26 meq/L 22-29 BLOOD UREA NITROGEN (BEAKER) (test gcpm=772) 15 mg/dL 7-21 CREATININE (BEAKER) (test vinf=256) 1.17 mg/dL 0.57-1.25 GLUCOSE RANDOM (BEAKER) (test uvta=088) 117 mg/dL 70-105 CALCIUM (BEAKER) (test iibp=584) 9.3 mg/dL 8.4-10.2 EGFR (BEAKER) (test ytew=1325) 64 mL/min/1.73 sq m ESTIMATED GFR IS NOT ACCURATE CREATININE CLEARANCE IN PREDICTING GLOMERULAR FILTRATION RATE. ESTIMATED GFR IS NOT APPLICABLE FOR DIALYSIS PATIENTS. HEPATIC FUNCTION [id number] 15:09:00* Test Item Value Reference Range Comments TOTAL PROTEIN (BEAKER) (test scfa=387) 7.2 gm/dL 6.0-8.3 ALBUMIN (BEAKER) (test cuxw=2074) 4.3 g/dL 3.5-5.0 BILIRUBIN TOTAL (BEAKER) (test dvhs=736) 0.6 mg/dL 0.2-1.2 BILIRUBIN DIRECT (BEAKER) (test vxfz=752) 0.2 mg/dL 0.1-0.5 ALKALINE PHOSPHATASE (BEAKER) (test gjnq=320) 128 U/L 40-150 AST (SGOT) (BEAKER) (test agqd=651) 19 U/L 5-34 ALT (SGPT) (BEAKER) (test jnky=206) 14 U/L 6-55 B-TYPE NATRIURETIC FACTOR (BNP)2018-02-12 15:08:00* Test Item Value Reference Range Comments B-TYPE NATRIURETIC PEPTIDE (BEAKER) (test dtmh=912) 94 pg/mL 0-100 CBC W/PLT COUNT & AUTO [id number] 14:39:00* Test Item Value Reference Range Comments WHITE BLOOD CELL COUNT (BEAKER) (test nvxe=587) 4.3 K/ L 3.5-10.5 RED BLOOD CELL COUNT (BEAKER) (test oerr=549) 4.36 M/ L 4.63-6.08 HEMOGLOBIN (BEAKER) (test oihy=794) 12.7 GM/DL 13.7-17.5 HEMATOCRIT (BEAKER) (test dlsz=753) 37.9 % 40.1-51.0 MEAN CORPUSCULAR VOLUME (BEAKER) (test jhlx=868) 86.9 fL 79.0-92.2 MEAN CORPUSCULAR HEMOGLOBIN (BEAKER) (test vwyh=384) 29.1 pg 25.7-32.2 MEAN CORPUSCULAR HEMOGLOBIN CONC (BEAKER) (test kftk=682) 33.5 GM/DL 32.3-36.5 RED CELL DISTRIBUTION WIDTH (BEAKER) (test njvp=327) 12.3 % 11.6-14.4 PLATELET COUNT (BEAKER) (test ynqq=516) 165 K/CU MM 150-450 MEAN PLATELET VOLUME (BEAKER) (test evry=488) 10.1 fL 9.4-12.4 NUCLEATED RED BLOOD CELLS (BEAKER) (test hhrc=462) 0 /100 WBC 0-0 NEUTROPHILS RELATIVE PERCENT (BEAKER) (test hvqu=968) 61 % LYMPHOCYTES RELATIVE PERCENT (BEAKER) (test pnfr=819) 21 % MONOCYTES RELATIVE PERCENT (BEAKER) (test ebmz=808) 10 % EOSINOPHILS RELATIVE PERCENT (BEAKER) (test axxt=692) 7 % BASOPHILS RELATIVE PERCENT (BEAKER) (test rqly=310) 1 % NEUTROPHILS ABSOLUTE COUNT (BEAKER) (test hdtl=418) 2.60 K/ L 1.78-5.38 LYMPHOCYTES ABSOLUTE COUNT (BEAKER) (test saqe=109) 0.91 K/ L 1.32-3.57 MONOCYTES ABSOLUTE COUNT (BEAKER) (test yhwc=200) 0.42 K/ L 0.30-0.82 EOSINOPHILS ABSOLUTE COUNT (BEAKER) (test ipgd=788) 0.29 K/ L 0.04-0.54 BASOPHILS ABSOLUTE COUNT (BEAKER) (test nfvn=353) 0.05 K/ L 0.01-0.08 IMMATURE GRANULOCYTES-RELATIVE PERCENT (BEAKER) (test ugfd=7525) 1 % 0-1 HEMOGLOBIN [id number] 22:10:00* Test Item Value Reference Range Comments HEMOGLOBIN A1C (BEAKER) (test ifmb=314) 5.9 % 4.3-6.1 B-TYPE NATRIURETIC FACTOR (BNP)2017-11-11 15:07:00* Test Item Value Reference Range Comments B-TYPE NATRIURETIC PEPTIDE (BEAKER) (test ofjh=882) 99 pg/mL 0-100 CBC W/PLT COUNT & AUTO [id number] 14:33:00* Test Item Value Reference Range Comments WHITE BLOOD CELL COUNT (BEAKER) (test ghcv=701) 3.6 K/ L 3.5-10.5 RED BLOOD CELL COUNT (BEAKER) (test wpyj=929) 4.27 M/ L 4.63-6.08 HEMOGLOBIN (BEAKER) (test mkwv=146) 12.3 GM/DL 13.7-17.5 HEMATOCRIT (BEAKER) (test lamb=721) 36.7 % 40.1-51.0 MEAN CORPUSCULAR VOLUME (BEAKER) (test rsof=663) 85.9 fL 79.0-92.2 MEAN CORPUSCULAR HEMOGLOBIN (BEAKER) (test bzao=020) 28.8 pg 25.7-32.2 MEAN CORPUSCULAR HEMOGLOBIN CONC (BEAKER) (test acsn=353) 33.5 GM/DL 32.3-36.5 RED CELL DISTRIBUTION WIDTH (BEAKER) (test vyde=128) 12.5 % 11.6-14.4 PLATELET COUNT (BEAKER) (test vjcj=361) 116 K/CU MM 150-450 MEAN PLATELET VOLUME (BEAKER) (test wrbc=305) 9.8 fL 9.4-12.4 NUCLEATED RED BLOOD CELLS (BEAKER) (test ndtg=592) 0 /100 WBC 0-0 NEUTROPHILS RELATIVE PERCENT (BEAKER) (test vdeq=744) 56 % LYMPHOCYTES RELATIVE PERCENT (BEAKER) (test mkkr=741) 21 % MONOCYTES RELATIVE PERCENT (BEAKER) (test cvde=047) 13 % EOSINOPHILS RELATIVE PERCENT (BEAKER) (test iryh=297) 9 % BASOPHILS RELATIVE PERCENT (BEAKER) (test qnlj=838) 1 % NEUTROPHILS ABSOLUTE COUNT (BEAKER) (test kqhq=728) 2.01 K/ L 1.78-5.38 LYMPHOCYTES ABSOLUTE COUNT (BEAKER) (test oqsp=383) 0.75 K/ L 1.32-3.57 MONOCYTES ABSOLUTE COUNT (BEAKER) (test giad=900) 0.47 K/ L 0.30-0.82 EOSINOPHILS ABSOLUTE COUNT (BEAKER) (test ggso=011) 0.31 K/ L 0.04-0.54 BASOPHILS ABSOLUTE COUNT (BEAKER) (test agsr=454) 0.03 K/ L 0.01-0.08 BASIC METABOLIC [id number] 14:29:00* Test Item Value Reference Range Comments SODIUM (BEAKER) (test botd=540) 139 meq/L 136-145 POTASSIUM (BEAKER) (test ejku=026) 4.2 meq/L 3.5-5.1 CHLORIDE (BEAKER) (test eebx=921) 105 meq/L 98-107 CO2 (BEAKER) (test skgk=604) 26 meq/L 22-29 BLOOD UREA NITROGEN (BEAKER) (test bneg=544) 14 mg/dL 7-21 CREATININE (BEAKER) (test gvjq=739) 1.14 mg/dL 0.57-1.25 GLUCOSE RANDOM (BEAKER) (test mtqr=734) 89 mg/dL 70-105 CALCIUM (BEAKER) (test dwzs=432) 9.1 mg/dL 8.4-10.2 EGFR (BEAKER) (test jgiq=8046) 66 mL/min/1.73 sq m ESTIMATED GFR IS NOT ACCURATE CREATININE CLEARANCE IN PREDICTING GLOMERULAR FILTRATION RATE. ESTIMATED GFR IS NOT APPLICABLE FOR DIALYSIS PATIENTS. B-TYPE NATRIURETIC FACTOR (BNP)2017-08-05 15:17:00* Test Item Value Reference Range Comments B-TYPE NATRIURETIC PEPTIDE (BEAKER) (test iiaf=572) 142 pg/mL 0-100 LIPID [id number] 15:16:00* Test Item Value Reference Range Comments TRIGLYCERIDES (BEAKER) (test pxci=682) 238 mg/dL CHOLESTEROL (BEAKER) (test rxme=503) 172 mg/dL HDL CHOLESTEROL (BEAKER) (test oexq=256) 34 mg/dL LDL CHOLESTEROL CALCULATED (BEAKER) (test cuta=390) 90 mg/dL Triglyceride Reference Range: Low Risk <150 Borderline 150-199 High Risk 200-499 Very High Risk >=500Cholesterol Reference Range: Low Risk <200 Borderline 200-239 High Risk >240HDL Cholesterol Reference Range: Low Risk >=60 High Risk <40LDL Cholesterol Reference Range: Optimal <100 Near Optimal 100-129 Borderline 130-159 High 160-189 Very High >=190 Specimen slightly lipemicBASIC METABOLIC [id number] 15:14:00* Test Item Value Reference Range Comments SODIUM (BEAKER) (test upaq=692) 141 meq/L 136-145 POTASSIUM (BEAKER) (test lqrn=932) 4.3 meq/L 3.5-5.1 CHLORIDE (BEAKER) (test fjqd=127) 106 meq/L 98-107 CO2 (BEAKER) (test zrwr=872) 27 meq/L 22-29 BLOOD UREA NITROGEN (BEAKER) (test aixn=461) 14 mg/dL 7-21 CREATININE (BEAKER) (test eyfg=027) 1.07 mg/dL 0.57-1.25 GLUCOSE RANDOM (BEAKER) (test xbzv=684) 108 mg/dL 70-105 CALCIUM (BEAKER) (test hmbg=680) 9.1 mg/dL 8.4-10.2 EGFR (BEAKER) (test vtsa=0530) 71 mL/min/1.73 sq m ESTIMATED GFR IS NOT ACCURATE CREATININE CLEARANCE IN PREDICTING GLOMERULAR FILTRATION RATE. ESTIMATED GFR IS NOT APPLICABLE FOR DIALYSIS PATIENTS. HEPATIC FUNCTION [id number] 15:14:00* Test Item Value Reference Range Comments TOTAL PROTEIN (BEAKER) (test dkkp=420) 6.9 gm/dL 6.0-8.3 ALBUMIN (BEAKER) (test kqyx=9006) 4.0 g/dL 3.5-5.0 BILIRUBIN TOTAL (BEAKER) (test rrgs=367) 0.6 mg/dL 0.2-1.2 BILIRUBIN DIRECT (BEAKER) (test pkvh=186) 0.2 mg/dL 0.1-0.5 ALKALINE PHOSPHATASE (BEAKER) (test tfbn=679) 110 U/L 40-150 AST (SGOT) (BEAKER) (test rwnk=996) 21 U/L 5-34 ALT (SGPT) (BEAKER) (test wpdt=217) 15 U/L 6-55 Specimen slightly lipemicCBC W/PLT COUNT & AUTO [id number] 14:32:00 * Test Item Value Reference Range Comments WHITE BLOOD CELL COUNT (BEAKER) (test hosz=608) 4.2 K/ L 3.5-10.5 RED BLOOD CELL COUNT (BEAKER) (test wdhn=212) 4.29 M/ L 4.63-6.08 HEMOGLOBIN (BEAKER) (test ghqs=911) 12.7 GM/DL 13.7-17.5 HEMATOCRIT (BEAKER) (test xpdi=148) 37.4 % 40.1-51.0 MEAN CORPUSCULAR VOLUME (BEAKER) (test szoj=162) 87.2 fL 79.0-92.2 MEAN CORPUSCULAR HEMOGLOBIN (BEAKER) (test hdxr=229) 29.6 pg 25.7-32.2 MEAN CORPUSCULAR HEMOGLOBIN CONC (BEAKER) (test awkj=483) 34.0 GM/DL 32.3-36.5 RED CELL DISTRIBUTION WIDTH (BEAKER) (test xxga=262) 12.7 % 11.6-14.4 PLATELET COUNT (BEAKER) (test uvkc=581) 123 K/CU MM 150-450 MEAN PLATELET VOLUME (BEAKER) (test wmty=170) 10.4 fL 9.4-12.4 NUCLEATED RED BLOOD CELLS (BEAKER) (test loay=440) 0 /100 WBC 0-0 NEUTROPHILS RELATIVE PERCENT (BEAKER) (test yotx=114) 61 % LYMPHOCYTES RELATIVE PERCENT (BEAKER) (test ofqq=004) 18 % MONOCYTES RELATIVE PERCENT (BEAKER) (test pkbx=719) 12 % EOSINOPHILS RELATIVE PERCENT (BEAKER) (test qduh=442) 8 % BASOPHILS RELATIVE PERCENT (BEAKER) (test xpsj=799) 1 % NEUTROPHILS ABSOLUTE COUNT (BEAKER) (test usad=704) 2.54 K/ L 1.78-5.38 LYMPHOCYTES ABSOLUTE COUNT (BEAKER) (test ddnt=576) 0.75 K/ L 1.32-3.57 MONOCYTES ABSOLUTE COUNT (BEAKER) (test hpqt=473) 0.50 K/ L 0.30-0.82 EOSINOPHILS ABSOLUTE COUNT (BEAKER) (test avyx=266) 0.31 K/ L 0.04-0.54 BASOPHILS ABSOLUTE COUNT (BEAKER) (test wtsp=492) 0.04 K/ L 0.01-0.08 IMMATURE GRANULOCYTES-RELATIVE PERCENT (BEAKER) (test bpnf=4462) 1 % 0-1 B-TYPE NATRIURETIC FACTOR (BNP)2017-04-10 15:35:00* Test Item Value Reference Range Comments B-TYPE NATRIURETIC PEPTIDE (BEAKER) (test ixkk=779) 81 pg/mL 0-100 BASIC METABOLIC [id number] 15:27:00* Test Item Value Reference Range Comments SODIUM (BEAKER) (test ttga=021) 141 meq/L 136-145 POTASSIUM (BEAKER) (test ehpk=687) 3.8 meq/L 3.5-5.1 Specimen slightly hemolyzed CHLORIDE (BEAKER) (test bmeb=832) 109 meq/L 98-107 CO2 (BEAKER) (test pftj=223) 23 meq/L 22-29 BLOOD UREA NITROGEN (BEAKER) (test jzzc=719) 17 mg/dL 7-21 CREATININE (BEAKER) (test ixoj=947) 1.14 mg/dL 0.57-1.25 Specimen slightly hemolyzed GLUCOSE RANDOM (BEAKER) (test ezxn=625) 129 mg/dL 70-105 CALCIUM (BEAKER) (test sotu=329) 8.9 mg/dL 8.4-10.2 EGFR (BEAKER) (test pdzp=8236) 66 mL/min/1.73 sq m ESTIMATED GFR IS NOT ACCURATE CREATININE CLEARANCE IN PREDICTING GLOMERULAR FILTRATION RATE. ESTIMATED GFR IS NOT APPLICABLE FOR DIALYSIS PATIENTS. CBC W/PLT COUNT & AUTO [id number] 15:17:00* Test Item Value Reference Range Comments WHITE BLOOD CELL COUNT (BEAKER) (test knti=440) 4.1 K/ L 3.5-10.5 RED BLOOD CELL COUNT (BEAKER) (test body=095) 3.99 M/ L 4.63-6.08 HEMOGLOBIN (BEAKER) (test bcja=896) 11.5 GM/DL 13.7-17.5 HEMATOCRIT (BEAKER) (test ubjv=510) 34.6 % 40.1-51.0 MEAN CORPUSCULAR VOLUME (BEAKER) (test xtkh=359) 86.7 fL 79.0-92.2 MEAN CORPUSCULAR HEMOGLOBIN (BEAKER) (test ajnd=615) 28.8 pg 25.7-32.2 MEAN CORPUSCULAR HEMOGLOBIN CONC (BEAKER) (test zlcy=521) 33.2 GM/DL 32.3-36.5 RED CELL DISTRIBUTION WIDTH (BEAKER) (test ydin=644) 12.6 % 11.6-14.4 PLATELET COUNT (BEAKER) (test hszc=231) 144 K/CU MM 150-450 MEAN PLATELET VOLUME (BEAKER) (test xmtx=783) 9.9 fL 9.4-12.4 NUCLEATED RED BLOOD CELLS (BEAKER) (test fdkj=293) 0 /100 WBC 0-0 NEUTROPHILS RELATIVE PERCENT (BEAKER) (test lpsm=118) 58 % LYMPHOCYTES RELATIVE PERCENT (BEAKER) (test eyzn=108) 21 % MONOCYTES RELATIVE PERCENT (BEAKER) (test dapv=866) 12 % EOSINOPHILS RELATIVE PERCENT (BEAKER) (test abxs=498) 8 % BASOPHILS RELATIVE PERCENT (BEAKER) (test xsds=283) 1 % NEUTROPHILS ABSOLUTE COUNT (BEAKER) (test eqyi=826) 2.38 K/ L 1.78-5.38 LYMPHOCYTES ABSOLUTE COUNT (BEAKER) (test dmoj=380) 0.88 K/ L 1.32-3.57 MONOCYTES ABSOLUTE COUNT (BEAKER) (test btmn=682) 0.50 K/ L 0.30-0.82 EOSINOPHILS ABSOLUTE COUNT (BEAKER) (test dmlb=418) 0.33 K/ L 0.04-0.54 BASOPHILS ABSOLUTE COUNT (BEAKER) (test asnw=973) 0.03 K/ L 0.01-0.08 IMMATURE GRANULOCYTES-RELATIVE PERCENT (BEAKER) (test sudl=6300) 0 % 0-1 B-TYPE NATRIURETIC FACTOR (BNP)2017-01-09 14:40:00* Test Item Value Reference Range Comments B-TYPE NATRIURETIC PEPTIDE (BEAKER) (test jgok=036) 79 pg/mL 0-100 BASIC METABOLIC [id number] 14:37:00* Test Item Value Reference Range Comments SODIUM (BEAKER) (test lsme=164) 141 meq/L 136-145 POTASSIUM (BEAKER) (test ogov=365) 3.9 meq/L 3.5-5.1 Specimen slightly hemolyzed CHLORIDE (BEAKER) (test iccv=054) 108 meq/L 98-107 CO2 (BEAKER) (test gjgm=104) 26 meq/L 22-29 BLOOD UREA NITROGEN (BEAKER) (test orsk=183) 15 mg/dL 7-21 CREATININE (BEAKER) (test lsff=231) 1.04 mg/dL 0.57-1.25 Specimen slightly hemolyzed GLUCOSE RANDOM (BEAKER) (test pvwz=546) 99 mg/dL 70-105 CALCIUM (BEAKER) (test rkoq=543) 8.9 mg/dL 8.4-10.2 EGFR (BEAKER) (test yxqt=7575) 73 mL/min/1.73 sq m ESTIMATED GFR IS NOT ACCURATE CREATININE CLEARANCE IN PREDICTING GLOMERULAR FILTRATION RATE. ESTIMATED GFR IS NOT APPLICABLE FOR DIALYSIS PATIENTS. LIPID [id number] 14:37:00* Test Item Value Reference Range Comments TRIGLYCERIDES (BEAKER) (test ftcg=004) 188 mg/dL Specimen slightly hemolyzed CHOLESTEROL (BEAKER) (test mowk=101) 172 mg/dL Specimen slightly hemolyzed HDL CHOLESTEROL (BEAKER) (test oshd=520) 32 mg/dL LDL CHOLESTEROL CALCULATED (BEAKER) (test iznr=649) 102 mg/dL Triglyceride Reference Range: Low Risk <150 Borderline 150-199 High Risk 200-499 Very High Risk >=500Cholesterol Reference Range: Low Risk <200 Borderline 200-239 High Risk >240HDL Cholesterol Reference Range: Low Risk >=60 High Risk <40LDL Cholesterol Reference Range: Optimal <100 Near Optimal 100-129 Borderline 130-159 High 160-189 Very High >=190 HEPATIC FUNCTION [id number] 14:37:00* Test Item Value Reference Range Comments TOTAL PROTEIN (BEAKER) (test idqf=885) 6.8 gm/dL 6.0-8.3 Specimen slightly hemolyzed ALBUMIN (BEAKER) (test whmr=6941) 4.0 g/dL 3.5-5.0 Specimen slightly hemolyzed BILIRUBIN TOTAL (BEAKER) (test woal=416) 0.6 mg/dL 0.2-1.2 Specimen slightly hemolyzed BILIRUBIN DIRECT (BEAKER) (test swtv=114) 0.2 mg/dL 0.1-0.5 Specimen slightly hemolyzed ALKALINE PHOSPHATASE (BEAKER) (test seid=531) 116 U/L 40-150 AST (SGOT) (BEAKER) (test trow=129) 24 U/L 5-34 Specimen slightly hemolyzed ALT (SGPT) (BEAKER) (test jlzq=863) 17 U/L 6-55 Specimen slightly hemolyzed CBC W/PLT COUNT & AUTO [id number] 14:19:00* Test Item Value Reference Range Comments WHITE BLOOD CELL COUNT (BEAKER) (test ttlz=404) 3.5 K/ L 3.5-10.5 RED BLOOD CELL COUNT (BEAKER) (test scfl=969) 4.00 M/ L 4.63-6.08 HEMOGLOBIN (BEAKER) (test xind=875) 11.5 GM/DL 13.7-17.5 HEMATOCRIT (BEAKER) (test rmtj=802) 34.5 % 40.1-51.0 MEAN CORPUSCULAR VOLUME (BEAKER) (test duod=625) 86.3 fL 79.0-92.2 MEAN CORPUSCULAR HEMOGLOBIN (BEAKER) (test zods=500) 28.8 pg 25.7-32.2 MEAN CORPUSCULAR HEMOGLOBIN CONC (BEAKER) (test udvn=970) 33.3 GM/DL 32.3-36.5 RED CELL DISTRIBUTION WIDTH (BEAKER) (test iquo=734) 12.5 % 11.6-14.4 PLATELET COUNT (BEAKER) (test ussf=016) 128 K/CU MM 150-450 MEAN PLATELET VOLUME (BEAKER) (test pchg=652) 9.9 fL 9.4-12.4 NUCLEATED RED BLOOD CELLS (BEAKER) (test zrft=506) 0 /100 WBC 0-0 NEUTROPHILS RELATIVE PERCENT (BEAKER) (test mllk=081) 55 % LYMPHOCYTES RELATIVE PERCENT (BEAKER) (test hroa=505) 24 % MONOCYTES RELATIVE PERCENT (BEAKER) (test pitw=601) 12 % EOSINOPHILS RELATIVE PERCENT (BEAKER) (test glje=181) 8 % BASOPHILS RELATIVE PERCENT (BEAKER) (test hndq=598) 1 % NEUTROPHILS ABSOLUTE COUNT (BEAKER) (test rhzg=743) 1.92 K/ L 1.78-5.38 LYMPHOCYTES ABSOLUTE COUNT (BEAKER) (test saea=759) 0.84 K/ L 1.32-3.57 MONOCYTES ABSOLUTE COUNT (BEAKER) (test zqjy=194) 0.43 K/ L 0.30-0.82 EOSINOPHILS ABSOLUTE COUNT (BEAKER) (test xlfn=475) 0.28 K/ L 0.04-0.54 BASOPHILS ABSOLUTE COUNT (BEAKER) (test ebai=469) 0.03 K/ L 0.01-0.08 IMMATURE GRANULOCYTES-RELATIVE PERCENT (BEAKER) (test woqc=6479) 0 % 0-1 B-TYPE NATRIURETIC FACTOR (BNP)2016-09-10 12:49:00* Test Item Value Reference Range Comments B-TYPE NATRIURETIC PEPTIDE (BEAKER) (test ojtw=380) 84 pg/mL 0-100 HEPATIC FUNCTION [id number] 12:42:00* Test Item Value Reference Range Comments TOTAL PROTEIN (BEAKER) (test oeav=057) 6.8 gm/dL 6.0-8.3 ALBUMIN (BEAKER) (test oigi=8468) 4.0 g/dL 3.5-5.0 BILIRUBIN TOTAL (BEAKER) (test kpdb=170) 0.6 mg/dL 0.2-1.2 BILIRUBIN DIRECT (BEAKER) (test thrf=222) 0.2 mg/dL 0.1-0.5 ALKALINE PHOSPHATASE (BEAKER) (test ekqp=918) 136 U/L 40-150 AST (SGOT) (BEAKER) (test jrhi=788) 19 U/L 5-34 ALT (SGPT) (BEAKER) (test fjsg=163) 13 U/L 6-55 BASIC METABOLIC [id number] 12:42:00* Test Item Value Reference Range Comments SODIUM (BEAKER) (test tmio=663) 141 meq/L 136-145 POTASSIUM (BEAKER) (test kgmy=786) 3.8 meq/L 3.5-5.1 CHLORIDE (BEAKER) (test wtwh=280) 107 meq/L 98-107 CO2 (BEAKER) (test daog=312) 28 meq/L 22-29 BLOOD UREA NITROGEN (BEAKER) (test scju=237) 18 mg/dL 7-21 CREATININE (BEAKER) (test gzek=985) 1.14 mg/dL 0.57-1.25 GLUCOSE RANDOM (BEAKER) (test tvaz=827) 76 mg/dL 70-105 CALCIUM (BEAKER) (test vkpz=450) 8.9 mg/dL 8.4-10.2 EGFR (BEAKER) (test swey=3685) 66 mL/min/1.73 sq m ESTIMATED GFR IS NOT ACCURATE CREATININE CLEARANCE IN PREDICTING GLOMERULAR FILTRATION RATE. ESTIMATED GFR IS NOT APPLICABLE FOR DIALYSIS PATIENTS. CBC W/PLT COUNT & AUTO [id number] 12:30:00* Test Item Value Reference Range Comments WHITE BLOOD CELL COUNT (BEAKER) (test oszv=487) 4.5 K/ L 4.0-10.0 RED BLOOD CELL COUNT (BEAKER) (test cmcz=320) 4.60 M/ L 4.20-5.80 HEMOGLOBIN (BEAKER) (test cqxb=984) 13.3 GM/DL 13.0-16.8 HEMATOCRIT (BEAKER) (test xjlv=923) 40.2 % 40.0-50.0 MEAN CORPUSCULAR VOLUME (BEAKER) (test oysa=038) 87.4 fL 82.0-98.0 MEAN CORPUSCULAR HEMOGLOBIN (BEAKER) (test kdzf=253) 28.9 pg 27.0-33.0 MEAN CORPUSCULAR HEMOGLOBIN CONC (BEAKER) (test qdvb=374) 33.1 GM/DL 32.0-36.0 RED CELL DISTRIBUTION WIDTH (BEAKER) (test tgnq=124) 13.4 % 10.3-14.2 PLATELET COUNT (BEAKER) (test zdnf=789) 129 K/CU MM 150-430 MEAN PLATELET VOLUME (BEAKER) (test rptk=842) 7.4 fL 6.5-10.5 NUCLEATED RED BLOOD CELLS (BEAKER) (test bpyi=641) 0 /100 WBC 0-0 NEUTROPHILS RELATIVE PERCENT (BEAKER) (test aqst=830) 65 % LYMPHOCYTES RELATIVE PERCENT (BEAKER) (test iucn=710) 19 % MONOCYTES RELATIVE PERCENT (BEAKER) (test ybbm=771) 11 % EOSINOPHILS RELATIVE PERCENT (BEAKER) (test sznb=979) 5 % BASOPHILS RELATIVE PERCENT (BEAKER) (test jsmp=191) 1 % NEUTROPHILS ABSOLUTE COUNT (BEAKER) (test fwju=036) 2.90 K/ L 1.80-8.00 LYMPHOCYTES ABSOLUTE COUNT (BEAKER) (test mmdd=488) 0.84 K/ L 1.48-4.50 MONOCYTES ABSOLUTE COUNT (BEAKER) (test kiay=143) 0.51 K/ L 0.00-1.30 EOSINOPHILS ABSOLUTE COUNT (BEAKER) (test hfom=565) 0.21 K/ L 0.00-0.50 BASOPHILS ABSOLUTE COUNT (BEAKER) (test atmx=086) 0.03 K/ L 0.00-0.20 0.00B-TYPE NATRIURETIC FACTOR (BNP)2016-06-11 13:11:00* Test Item Value Reference Range Comments B-TYPE NATRIURETIC PEPTIDE (BEAKER) (test fwkp=235) 127 pg/mL 0-100 [id number] 13:08:00* Test Item Value Reference Range Comments MAGNESIUM (BEAKER) (test sapa=727) 1.9 mg/dL 1.6-2.6 BASIC METABOLIC [id number] 13:08:00* Test Item Value Reference Range Comments SODIUM (BEAKER) (test bzkw=774) 145 meq/L 136-145 POTASSIUM (BEAKER) (test byen=829) 4.3 meq/L 3.5-5.1 CHLORIDE (BEAKER) (test kuwz=207) 108 meq/L 98-107 CO2 (BEAKER) (test cozm=351) 28 meq/L 22-29 BLOOD UREA NITROGEN (BEAKER) (test kgrb=191) 17 mg/dL 7-21 CREATININE (BEAKER) (test nlon=353) 1.03 mg/dL 0.57-1.25 GLUCOSE RANDOM (BEAKER) (test tppl=172) 118 mg/dL 70-105 CALCIUM (BEAKER) (test avgi=737) 9.2 mg/dL 8.4-10.2 EGFR (BEAKER) (test jqgl=4125) 74 mL/min/1.73 sq m ESTIMATED GFR IS NOT ACCURATE CREATININE CLEARANCE IN PREDICTING GLOMERULAR FILTRATION RATE. ESTIMATED GFR IS NOT APPLICABLE FOR DIALYSIS PATIENTS. LIPID [id number] 13:08:00* Test Item Value Reference Range Comments TRIGLYCERIDES (BEAKER) (test xqrc=687) 148 mg/dL CHOLESTEROL (BEAKER) (test oznk=099) 176 mg/dL HDL CHOLESTEROL (BEAKER) (test dovz=788) 36 mg/dL LDL CHOLESTEROL CALCULATED (BEAKER) (test jhkp=520) 110 mg/dL Triglyceride Reference Range: Low Risk <150 Borderline 150-199 High Risk 200-499 Very High Risk >=500Cholesterol Reference Range: Low Risk <200 Borderline 200-239 High Risk >240HDL Cholesterol Reference Range: Low Risk >=60 High Risk <40LDL Cholesterol Reference Range: Optimal <100 Near Optimal 100-129 Borderline 130-159 High 160-189 Very High >=190 HEPATIC FUNCTION [id number] 13:08:00* Test Item Value Reference Range Comments TOTAL PROTEIN (BEAKER) (test ivtk=476) 6.6 gm/dL 6.0-8.3 ALBUMIN (BEAKER) (test rrtt=4046) 4.1 g/dL 3.5-5.0 BILIRUBIN TOTAL (BEAKER) (test tjcf=234) 0.7 mg/dL 0.2-1.2 BILIRUBIN DIRECT (BEAKER) (test ddnt=540) 0.2 mg/dL 0.1-0.5 ALKALINE PHOSPHATASE (BEAKER) (test gyrh=502) 132 U/L 40-150 AST (SGOT) (BEAKER) (test rlxs=950) 17 U/L 5-34 ALT (SGPT) (BEAKER) (test xcvj=507) 13 U/L 6-55 CBC W/PLT COUNT & AUTO [id number] 13:01:00* Test Item Value Reference Range Comments WHITE BLOOD CELL COUNT (BEAKER) (test virb=571) 4.5 K/ L 4.0-10.0 RED BLOOD CELL COUNT (BEAKER) (test umee=448) 4.55 M/ L 4.20-5.80 HEMOGLOBIN (BEAKER) (test reuz=561) 12.9 GM/DL 13.0-16.8 HEMATOCRIT (BEAKER) (test rmey=969) 38.1 % 40.0-50.0 MEAN CORPUSCULAR VOLUME (BEAKER) (test ljpl=864) 83.6 fL 82.0-98.0 MEAN CORPUSCULAR HEMOGLOBIN (BEAKER) (test hbko=391) 28.4 pg 27.0-33.0 MEAN CORPUSCULAR HEMOGLOBIN CONC (BEAKER) (test suub=261) 34.0 GM/DL 32.0-36.0 RED CELL DISTRIBUTION WIDTH (BEAKER) (test yctw=609) 15.5 % 10.3-14.2 PLATELET COUNT (BEAKER) (test uirx=362) 116 K/CU MM 150-430 MEAN PLATELET VOLUME (BEAKER) (test wcgd=347) 8.0 fL 6.5-10.5 NUCLEATED RED BLOOD CELLS (BEAKER) (test sftm=429) 0 /100 WBC 0-0 NEUTROPHILS RELATIVE PERCENT (BEAKER) (test zwie=135) 59 % LYMPHOCYTES RELATIVE PERCENT (BEAKER) (test bovu=834) 23 % MONOCYTES RELATIVE PERCENT (BEAKER) (test wjyr=555) 13 % EOSINOPHILS RELATIVE PERCENT (BEAKER) (test iwfn=306) 6 % BASOPHILS RELATIVE PERCENT (BEAKER) (test jkul=098) 0 % NEUTROPHILS ABSOLUTE COUNT (BEAKER) (test pyew=038) 2.61 K/ L 1.80-8.00 LYMPHOCYTES ABSOLUTE COUNT (BEAKER) (test xdfs=809) 1.01 K/ L 1.48-4.50 MONOCYTES ABSOLUTE COUNT (BEAKER) (test whnq=970) 0.58 K/ L 0.00-1.30 EOSINOPHILS ABSOLUTE COUNT (BEAKER) (test qarv=746) 0.25 K/ L 0.00-0.50 BASOPHILS ABSOLUTE COUNT (BEAKER) (test odir=308) 0.01 K/ L 0.00-0.20 0.00
[2018-03-05 09:25] VITALS: BP 141/86
== END | disposition home or self-care (01) ==
LOC: OR 06:44
PROVIDERS: ATTEND Internal Medicine Gastroenterology
DX: Z12.11 Encounter for screening for malignant neoplasm of colon (principal); D12.3 Benign neoplasm of transverse colon; D12.8 Benign neoplasm of rectum; D17.5 Benign lipomatous neoplasm of intra-abdominal organs; K64.8 Other hemorrhoids; I25.810 Atherosclerosis of coronary artery bypass graft(s) without angina pectoris; I25.2 Old myocardial infarction; I11.0 Hypertensive heart disease with heart failure; I50.9 Heart failure, unspecified; M19.90 Unspecified osteoarthritis, unspecified site; Z01.810 Encounter for preprocedural cardiovascular examination; Z01.812 Encounter for preprocedural laboratory examination; Z95.1 Presence of aortocoronary bypass graft; Z95.5 Presence of coronary angioplasty implant and graft; Z95.0 Presence of cardiac pacemaker
CPT/HCPCS: 36415; 45380; 45385; 85025; 93005; J2250; 45378

== ENCOUNTER → 2021-02-22 | Day surgery (SDC) | payer BC ==
[2021-02-20 09:50] LABS: BASOPHILS % 0.7 % (0.0-1.0); EOSINOPHILS # (AUTO) 0.3 (0.0-0.4); EOSINOPHILS % 6.7 % (0.0-6.0); HEMATOCRIT 35.5 % (38.2-49.6); HEMOGLOBIN 11.5 g/dL (14.0-18.0); LYMPHOCYTES # (AUTO) 0.7 (1.0-3.2); LYMPHOCYTES % 15.5 % (18.0-39.1); MEAN CORPUSCULAR HGB CONC 32.4 g/dL (31-35); MEAN CORPUSCULAR VOLUME 89.6 fL (81-99); MONOCYTES # (AUTO) 0.6 (0.2-0.8); MONOCYTES % 14.5 % (4.4-11.3); NEUTROPHILS # (AUTO) 2.7 (2.1-6.9); NEUTROPHILS % 62.4 % (38.7-80.0); PLATELET COUNT 113 x10e3/uL (140-360); RED BLOOD COUNT 3.96 x10e6/uL (4.3-5.7); RED CELL DISTRIBUTION WIDTH 13.1 % (11.7-14.4)
[~2021-02-22] MED LIST changes: +LIDOCAINE HCL 2% LOCAL INJ 5 ML SDV VIAL INJ ONE; +POVIDONE IODINE 0.05% 0.05 % ML PO ONE; +PROPOFOL IV EMULSION 10 MG/ML 20 ML VIAL ONE; -PROPOFOL IV EMULSION 10 MG/ML 50 ML VIAL ONE; +ZETIA10 MG PO
[2021-02-22 09:00] VITALS: BP 140/100
== END | disposition home or self-care (01) ==
LOC: OR 05:30
PROVIDERS: ATTEND Internal Medicine Gastroenterology
DX: Z09 Encounter for follow-up examination after completed treatment for conditions other than malignant neoplasm (principal); D12.0 Benign neoplasm of cecum; D12.3 Benign neoplasm of transverse colon; K64.8 Other hemorrhoids; Z71.3 Dietary counseling and surveillance; I10 Essential (primary) hypertension; E66.9 Obesity, unspecified; I25.2 Old myocardial infarction; E78.00 Pure hypercholesterolemia, unspecified; Z01.810 Encounter for preprocedural cardiovascular examination; Z01.812 Encounter for preprocedural laboratory examination; Z20.822 Contact with and (suspected) exposure to COVID-19; Z68.35 Body mass index [BMI] 35.0-35.9, adult
CPT/HCPCS: 36415; 45378; 85025; 93005; J2001; J2250; J3010; U0002